=== PATIENT | female | born 1955 | race African-American/Black ===

== ENCOUNTER → 2017-02-25 | Outpatient (CLI) | payer BC ==
[~2017-02-25] MED LIST: AMIT10TA PO; BENT10CA PO; CITICOLINE PO; CLOP75TA2 PO; DULO30CA PO; KLON2TAB PO; LANTINJ4 SC; LISI-542 PO; METO1TAB33 PO; MORP30TASA PO; NEUR100C PO; NITR100C39 PO; OXYB10TA PO; OXYC10TA12 PO; PANT40TA2 PO; PLAV1TAB2 PO; PRAV1TAB39 PO; TRAZ-136 PO
[2017-02-25 10:18] LABS: MEAN CORPUSCULAR HEMOGLOBIN 27.5 pg (27.0-33.0); MEAN CORPUSCULAR HGB CONC 34.2 g/dl (32.0-36.5); MEAN CORPUSCULAR VOLUME 80.5 fl (80.0-96.0); RED CELL DISTRIBUTION WIDTH 14.1 % (11.5-14.5); WHITE BLOOD COUNT 7.8 K/mm3 (4.0-10.0)
[2017-02-25 10:43] LABS: ALBUMIN 3.5 GM/DL (3.2-5.2); ALKALINE PHOSPHATASE 148 U/L (45-117); ALT/SGPT 31 U/L (12-78); ANION GAP 12 MEQ/L (8-16); AST/SGOT 22 U/L (15-37); BILIRUBIN,TOTAL 0.4 MG/DL (0.2-1.0); BLOOD UREA NITROGEN 12 MG/DL (7-18); CALCIUM LEVEL 8.8 MG/DL (8.8-10.2); CARBON DIOXIDE LEVEL 26 MEQ/L (21-32); CHLORIDE LEVEL 106 MEQ/L (98-107); CHOLESTEROL LEVEL 189 MG/DL (<200); FREE T4 1.19 NG/DL (0.76-1.46); GLOMERULAR FILTRATION RATE > 60.0 (>45); GLUCOSE, FASTING 136 MG/DL (80-110); POTASSIUM SERUM 4.4 MEQ/L (3.5-5.1); SODIUM LEVEL 144 MEQ/L (136-145); TOTAL PROTEIN 7.9 GM/DL (6.4-8.2); TRIGLYCERIDES LEVEL 238 MG/DL (<150)
== END ==
LOC: M LAB 08:47
PROVIDERS: ATTEND Physician Assistant
DX: M54.5 Low back pain (principal)

== ENCOUNTER → 2017-12-16 | Outpatient (CLI) | payer BC ==
[2017-12-16 11:18] LABS: VITAMIN B12 LEVEL 1608 PG/ML
[2017-12-16 11:19] LABS: RHEUMATOID FACTOR QUANT < 10.0 IU/ML (<15.0)
[2017-12-16 11:23] LABS: ERYTHROCYTE SEDIMENTATION RATE 50 mm/hr (0-30)
[2017-12-16 11:53] LABS: FOLATE 17.7 NG/ML
[2017-12-21 14:55] LABS: ANCA-ATYPICAL <1:20 titer (Neg:<1:20); ANTI DOUBLE STRAND-DNA AB <1 IU/mL (0-9); ANTI THROMBIN 3 FUNCT ACTIVITY 116 % (75-135); ANTINUCLEAR ANTIBODIES DIRECT Negative (Negative); CARDIOLIPIN IGA ANTIBODY <9 APL U/mL (0-11); CARDIOLIPIN IGG ANTIBODY <9 GPL U/mL (0-14); CARDIOLIPIN IGM ANTIBODY 14 MPL U/mL (0-12); CYTOPLASMIC NEUTROP AB ANCA-C <1:20 titer (Neg:<1:20); PERINUCLEAR AB ANCA-P <1:20 titer (Neg:<1:20); PROTEIN C FUNCTIONAL ACTIVITY 148 % (73-180); PROTEIN S FUNCTIONAL ACTIVITY 85 % (63-140); SJOGREN'S ANTI SS-A <0.2 AI (0.0-0.9); SJOGREN'S ANTI SS-B <0.2 AI (0.0-0.9)
[2017-12-22 10:39] LABS: DRVV SCREEN 45.2 SEC
[2017-12-22 10:45] LABS: PTT LUPUS TYPE ANTICOAG SCREEN 1.1 (0-1.2)
== END ==
LOC: M LAB 09:53
DX: Z86.73 Personal history of transient ischemic attack (TIA), and cerebral infarction without residual deficits (principal)
CPT/HCPCS: 82746

== ENCOUNTER → 2018-04-16 | Outpatient (CLI) | payer BC | LOC: M SMT 14:26 | DX: M25.511 Pain in right shoulder (principal) | CPT/HCPCS: 73030 ==

== ENCOUNTER → 2018-04-16 | Outpatient (REF) | payer BC | LOC: M LAB REF 15:30 | DX: R30.0 Dysuria (principal) ==

== ENCOUNTER → 2019-01-08 | Outpatient (REF) | payer BC ==
[~2019-01-08] MED LIST changes: -DULO30CA PO; +DULO30CA9 PO; -PANT40TA2 PO; +PANT40TA3 PO; -TRAZ-136 PO; +TRAZ-163 PO
== END ==
LOC: M LAB REF 09:25
PROVIDERS: ATTEND Physician Assistant
DX: N39.0 Urinary tract infection, site not specified (principal)

== ENCOUNTER → 2019-03-23 | Outpatient (CLI) | payer BC ==
[~2019-03-23] MED LIST changes: -OXYB10TA PO; +OXYB10TA2 PO
[2019-03-23 18:51] LABS: BASO # 0.1 10^3/uL (0.0-0.2); BASO % 0.5 % (0.0-1.0); EOS # 0.2 10^3/uL (0.0-0.5); EOS % 2.2 % (0.0-3.0); HEMATOCRIT 44.9 % (36.0-47.0); HEMOGLOBIN 14.2 g/dl (12.0-15.5); LYMPH # 3.1 10^3/uL (1.5-5.0); LYMPH % 32.6 % (24.0-44.0); MEAN CORPUSCULAR HEMOGLOBIN 26.7 pg (27.0-33.0); MEAN CORPUSCULAR HGB CONC 31.6 g/dl (32.0-36.5); MEAN CORPUSCULAR VOLUME 84.4 fl (80.0-96.0); MONO # 0.4 10^3/uL (0.0-0.8); MONO % 4.7 % (0.0-5.0); NEUTROPHILS # 5.6 10^3/uL (1.5-8.5); NEUTROPHILS % 59.6 % (36.0-66.0); PLATELET COUNT, AUTOMATED 334 10^3/uL (150-450); RED BLOOD COUNT 5.32 10^6/uL (4.00-5.40); WHITE BLOOD COUNT 9.4 10^3/uL (4.0-10.0)
[2019-03-23 18:55] LABS: CHOLESTEROL RISK RATIO 3.274 (<5); FREE T4 0.97 NG/DL (0.76-1.46); THYROID STIMULATING HORMONE 1.14 uIU/ML (0.358-3.740)
[2019-03-23 19:20] LABS: MALB URINE SIEMENS 7.5 MG/L; MAU/CREAT RATIO 6.5 MCG/MG (0.0-30.0)
== END ==
LOC: M SMT 13:41
PROVIDERS: ATTEND Physician Assistant
DX: Z13.29 Encounter for screening for other suspected endocrine disorder (principal); E78.2 Mixed hyperlipidemia

== ENCOUNTER → 2020-01-06 | Outpatient (REF) | payer BC ==
[~2020-01-06] MED LIST changes: +BENZ-18; +FLUT1BLS3 INH; +HUMA100I3 SC; +INSU100V2; +LEVA0.6322; +LEVA0.636 INH; +LOSA25TA14; +LOSA25TA14 PO; +METO1TAB7 PO; -OXYB10TA2 PO; +OXYB10TA23 PO; +PANT40TA29 PO; -PANT40TA3 PO; +ROSU10TA6; +ROSU10TA6 PO; +TESS100C PO; -TRAZ-163 PO; +TRAZ-257 PO; +XARE20TA PO; +ZOLP12.518; +ZOLP12.518 PO
[2020-01-06 18:54] LABS: APPEARANCE, URINE CLEAR (CLEAR); BACTERIA, URINE AUTO 1+ (NEGATIVE); BILIRUBIN, URINE AUTO NEGATIVE (NEGATIVE); BLOOD, URINE BLOOD NEGATIVE (NEGATIVE); COLOR, URINE YELLOW (YELLOW); GLUCOSE, URINE (UA) AUTO NEGATIVE (NEGATIVE); KETONE, URINE AUTO NEGATIVE (NEGATIVE); LEUKOCYTE ESTERASE, URINE AUTO NEGATIVE (NEGATIVE); NITRITE, URINE AUTO NEGATIVE (NEGATIVE); PROTEIN, URINE AUTO NEGATIVE (NEGATIVE); RBC, URINE AUTO 0 /HPF (0-3); SPECIFIC GRAVITY URINE AUTO 1.012 (1.002-1.035); SQUAMOUS EPITHELIAL CELL UR AU 1 /HPF (0-6); UROBILINOGEN, URINE AUTO 0.2 mg/dL (0.0-2.0); WBC, URINE AUTO 1 /HPF (0-3)
== END ==
LOC: M SMT 16:59
PROVIDERS: ATTEND Nurse Practitioner Family
DX: R30.0 Dysuria (principal)

== ENCOUNTER 2020-04-17 22:52 | Inpatient (IN) | payer BC ==
[~2020-04-17] VITALS: Ht 167.6 cm; Wt 84.0 kg
[~2020-04-17 22:52] MED LIST changes: -BENZ-18; -FLUT1BLS3 INH; -HUMA100I3 SC; -INSU100V2; -LEVA0.6322; -LEVA0.636 INH; -LOSA25TA14; -LOSA25TA14 PO; -METO1TAB7 PO; -ROSU10TA6; -ROSU10TA6 PO; -TESS100C PO; -XARE20TA PO; -ZOLP12.518; -ZOLP12.518 PO
--- NOTE | 2020-04-17 23:10 | REPVR ---
PROCEDURE INFORMATION: Exam: CT Head Without Contrast Exam date and time: 04/17/2020 10:58 PM Age: 64 years old Clinical indication: Weakness, facial; Patient HX: Left facial weak; Additional info: Stroke TECHNIQUE: Imaging protocol: Computed tomography of the head without contrast. Radiation optimization: All CT scans at this facility use at least one of these dose optimization techniques: automated exposure control; mA and/or kV adjustment per patient size (includes targeted exams where dose is matched to clinical indication); or iterative reconstruction. COMPARISON: No relevant prior studies available. FINDINGS: Brain: No intracranial hemorrhage or extra-axial fluid collection. No evidence of mass effect or midline shift. Lyons-white matter differentiation is intact. Cerebral ventricles: No ventriculomegaly. Bones/joints: No acute osseus lesion or fracture. Paranasal sinuses: Visualized sinuses are unremarkable. No fluid levels. Mastoid air cells: Unremarkable. Soft tissues: Unremarkable. IMPRESSION: No acute intracranial pathology. Electronically signed by: Juan Pablo Beauchamp On 04/17/2020 23:10:36 PM
[2020-04-17 23:33] LABS: BASO # 0.1 10^3/uL (0.0-0.2); BASO % 0.4 % (0.0-1.0); EOS # 0.2 10^3/uL (0.0-0.5); EOS % 1.3 % (0.0-3.0); HEMATOCRIT 43.4 % (36.0-47.0); HEMOGLOBIN 13.9 g/dl (12.0-15.5); LYMPH # 3.5 10^3/uL (1.5-5.0); LYMPH % 24.9 % (24.0-44.0); MEAN CORPUSCULAR VOLUME 81.3 fl (80.0-96.0); MONO % 7.2 % (0.0-5.0); NEUTROPHILS # 9.2 10^3/uL (1.5-8.5); NEUTROPHILS % 65.6 % (36.0-66.0); PLATELET COUNT, AUTOMATED 327 10^3/uL (150-450); RED BLOOD COUNT 5.34 10^6/uL (4.00-5.40); WHITE BLOOD COUNT 14.1 10^3/uL (4.0-10.0)
[2020-04-17] MEDS ORDERED: BENZ-18 (23:35)
[2020-04-17] MEDS ORDERED: ZOLP12.518 (23:35)
[2020-04-17] MEDS ORDERED: XARE20TA PO (23:35)
[2020-04-17] MEDS ORDERED: INSU100V2 (23:35)
[2020-04-17] MEDS ORDERED: ROSU10TA6 (23:35)
[2020-04-17] MEDS ORDERED: LEVA0.6322 (23:35)
[2020-04-17] MEDS ORDERED: LOSA25TA14 (23:35)
--- NOTE | 2020-04-17 23:38 | REPVR ---
PROCEDURE INFORMATION: Exam: XR Chest, 1 View Exam date and time: 04/17/2020 11:28 PM Age: 64 years old Clinical indication: Chest pain; Additional info: CVA TECHNIQUE: Imaging protocol: XR of the chest Views: 1 view. COMPARISON: No relevant prior studies available. FINDINGS: Tubes, catheters and devices: Electronic device projects over the mid left hemithorax. Lungs: No focal areas of consolidation. Pleural space: No pleural effusion or pneumothorax. Heart/Mediastinum: Cardiac and mediastinal silhouettes are unremarkable. Bones/joints: No acute osseus lesion or fracture. IMPRESSION: No acute cardiopulmonary findings. Electronically signed by: Juan Pablo Beauchamp On 04/17/2020 23:38:28 PM
[2020-04-17 23:45] VITALS: BP 157/78
[2020-04-17 23:45] LABS: INR 1.13; PARTIAL THROMBOPLASTIN TIME 31.6 SECONDS (24.2-38.5); PROTHROMBIN TIME 14.8 SECONDS (12.5-14.3)
--- NOTE | 2020-04-17 23:52 | IPNPDOC ---
Text Note Date of Service The patient was seen on 04/17/20. NOTE Time of service 1157 is a 64 yr old w a hx or 3 CVAs on Plavix, DM1, HTN, Asthma, GERD and depression who developed facial droop and expressive aphasia at about 6PM; she was out of the tPA window. She has also been having relapsing and remitting substernal chest pain that occurs w/o warning and dyspnea. 1 Acute CVA She is still symptomatic and her SBP is in the 190s Plan: telemetry / place stroke order set w MRI brain /MRA head and neck, lipids, A1C, Echo, PT/OT/SPL / c/w Plavix / increase rosuvastatin from 10 to 20mg daily / permissive HTN w target BP <220/120 / target serum glucose between 140 to 180 / Neuro consult in AM 2 Chest pain Suspect she has CAD bc of hx of 3 CVAs and DM Plan: telemetry / f/u BNP, serial trops & serial EKGs / c/w statin, Plavix, BB / her PCP may consider referral to Cardio for stress test on an out pt basis 3. SIRS She is tachycardic w leukocytosis May be reactive vs 2/2 infection Plan: telemetry / f/u, Trops & TSH / f/u respiratory panel bc she is c/o dyspnea / she is on levalbuterol rather than albuterol rest per 's H&P VS,Serjio, I+O VS, Serjio, I+O Laboratory Tests 04/17/20 23:17 Vital Signs Date Time Temp Pulse Resp B/P (MAP) Pulse Ox O2 Delivery O2 Flow Rate FiO2 04/17/20 23:45 98.6 106 18 157/78 95 Room Air DANITZA DE LA CRUZ MD Apr 17, 2020 23:52
[2020-04-17 23:59] LABS: CK-MB VALUE MASS < 1.0 NG/ML (<3.6); CPK CREATINE PHOSPHOKINASE 108 U/L (26-192); MB/CK RELATIVE INDEX 0.93 (< OR =4); TROPONIN I < 0.02 NG/ML (< 0.10)
[2020-04-18] MEDS ORDERED: ZOLP12.518 PO (00:06)
[2020-04-18] MEDS ORDERED: XARE20TA PO (00:06)
[2020-04-18] MEDS ORDERED: HUMA100I3 SC (00:06)
[2020-04-18] MEDS ORDERED: ROSU10TA6 PO (00:06)
[2020-04-18] MEDS ORDERED: PANT40TA29 PO (00:06)
[2020-04-18] MEDS ORDERED: TESS100C PO (00:06)
[2020-04-18] MEDS ORDERED: LEVA0.636 INH (00:06)
[2020-04-18] MEDS ORDERED: METO1TAB7 PO (00:06)
[2020-04-18] MEDS ORDERED: LOSA25TA14 PO (00:06)
[2020-04-18] MEDS ORDERED: FLUT1BLS3 INH (00:06)
[2020-04-18] MEDS ORDERED: NS 1,000 ML IV SCH (00:37)
[2020-04-18] MEDS ORDERED: GLUCOSE 4GM CHEW TABLET PO PRN (00:45)
[2020-04-18] MEDS ORDERED: DEXTROSE 50% 50 ML SYRINGE IV PRN (00:45)
[2020-04-18] MEDS ORDERED: GLUCAGON INJ 1MG VIAL SC PRN (00:45)
[2020-04-18] MEDS ORDERED: LEVALBUTEROL 1.25 MG/0.5 ML CONCENTRATE NEB INH PRN (00:45)
[2020-04-18 02:01] VITALS: BP 153/72
--- NOTE | 2020-04-18 03:01 | HPEPDOC ---
[facility] Medical History & Physical Date of Admission Apr 17, 2020 Date of Service: Apr 17, 2020 Attending Physician: DANTIZA DE LA CRUZ MD History and Physical CHIEF COMPLAINT: Right sided facial droop and right arm weakness HISTORY OF PRESENT ILLNESS: Patient is a 64 year old female who presented to the [facility] ER with complaint of worsening right sided facial droop, right arm weakness, and difficulty swallowing. Patient had stated that she noticed the symptoms around 1830. She said she felt like her face was drooping and she was not able to speak as clear. The patients had told her that she was slurring her speech. Additionally the patient stated that she developed some weakness in her right arm. She denied weakness in her legs however stated that she felt it was more difficult to walk. The patient also stated that she had developed some difficulty swallowing and stated that it was difficult for her to drink water On presentation to the ER the patient was vitally stable although hypertensive. She had a mild leukocytosis but otherwise no other laboratory abnormalities. At time of presentation the patient was outside of the tPa window and therefore no thrombolytics were administered. A CT of the head was negative for any intracranial pathology. Neurology was consulted in the ER with plans to see the patient tomorrow AM. Hospitalist service was consulted and the patient was admitted for further evaluation and management PAST MEDICAL HISTORY: 1. IDDM 2. Atherosclerotic disease with history of CVA x3 3. Atrial Fibrillation on Xarelto 4. HTN 5. Hyperlipidemia PAST SURGICAL HISTORY: 1. Total Hysterectomy 2. Appendectomy 3. Cholecystectomy 4. Bowel adhesion removal? 5. Bladder Suspension SOCIAL HISTORY: Patient lives at home with her . She spends half of her t genie in [place] and the rest in [place]. Most of her medical care is handeled by practiconers in [place]. She denies any smoking history. She denies any other IV or illicit drug use. She admits to social drinking and states "I like my tequila". She is independent of her ADLs and ambulates without a walker or cane at baseline FAMILY HISTORY: Patient has a family history positive for ASCVD with a stroke as the cause of in her mother at the age of 87 and in her father. She has one sister who has hypertension but is otherwise alive and well ALLERGIES: Please see below. REVIEW OF SYSTEMS: CONSTITUTIONAL: Denies fevers, chills, unintentional weight loss. Denies night sweats HEENT: Denies changes in vision. Admits to difficulty swallowing and moving her tongue. Denies pain on swallowing CARDIOVASCULAR: Admits to some chest pain that has been on and off for some time. States she has chest pain at rest but it does not worsen with exertion. Denies palpitations or feelings of the heart racing RESPIRATORY: Denies shortness of breath. Denies cough. Denies wheez GASTROINTESTINAL: Denies abdominal pain. Denies diarrhea or constipation. Denies nausea, vomiting. GENITOURINARY: Denies dysuria. Denies increased frequency or urgency SKIN: Denies rashes or lesions MUSCULOSKELETAL: Admits to right arm pain. NEUROLOGICAL: Admits to weakness in right arm. Admits to facial droop and change in speech. Admits to difficulty swallowing. Denies changes in vision PSYCHIATRIC: Admits to history of anxiety and depression ENDOCRINE: Denies heat intolerance or cold intolerance. Admits to diabetes HEMATOLOGIC/LYMPHATIC: Denies easy bruising or bleeding. Denies DVT or PE HOME MEDICATIONS: Please see below. PHYSICAL EXAMINATION: VITAL SIGNS: Temperature 98.2, pulse 97, respiratory rate 18, blood pressure 168/88, pulse oximetry 94% on room air. GENERAL APPEARANCE: Patient is awake, alert and oriented. She does not appear to be in any acute distress. Lying comfortably in bed. HEENT: Atraumatic, normocephalic. Eyes are nonicteric. Trachea is midline. EOMI. Mucous membranes pink and moist CARDIOVASCULAR: Normal S1, S2. Tachycardic rate. Irregularly irregular rhythm. No clicks, rubs, or murmurs LUNGS: Clear vesicular breath sounds bilaterally. Good respiratory effort. No wheezes, rhonchi, or rales ABDOMEN: Soft, nondistended. Nontender. Normoactive bowel sounds throughout EXTREMITIES: No edema. 2+ posterior tibial and radial pulses bilaterally NEUROLOGICAL: Right sided facial droop. 5/5 muscle strength testing. Subjective weakness of right upper extremity EOMI intact. Cerebellar testing normal PSYCHIATRIC: Mood and affect appear appropriate LABORATORY DATA: See below. IMAGING: PROCEDURE INFORMATION: Exam: CT Head Without Contrast Exam date and time: 04/17/2020 10:58 PM Age: 64 years old Clinical indication: Weakness, facial; Patient HX: Left facial weak; Additional info: Stroke TECHNIQUE: Imaging protocol: Computed tomography of the head without contrast. Radiation optimization: All CT scans at this facility use at least one of these dose optimization techniques: automated exposure control; mA and/or kV adjustment per patient size (includes targeted exams where dose is matched to clinical indication); or iterative reconstruction. COMPARISON: No relevant prior studies available. FINDINGS: Brain: No intracranial hemorrhage or extra-axial fluid collection. No evidence of mass effect or midline shift. Lyons-white matter differentiation is intact. Cerebral ventricles: No ventriculomegaly. Bones/joints: No acute osseus lesion or fracture. Paranasal sinuses: Visualized sinuses are unremarkable. No fluid levels. Mastoid air cells: Unremarkable. Soft tissues: Unremarkable. IMPRESSION: No acute intracranial pathology. Electronically signed by: Juan Pablo Beauchamp On 04/17/2020 23:10:36 PM PROCEDURE INFORMATION: Exam: XR Chest, 1 View Exam date and time: 04/17/2020 11:28 PM Age: 64 years old Clinical indication: Chest pain; Additional info: CVA TECHNIQUE: Imaging protocol: XR of the chest Views: 1 view. COMPARISON: No relevant prior studies available. FINDINGS: Tubes, catheters and devices: Electronic device projects over the mid left hemithorax. Lungs: No focal areas of consolidation. Pleural space: No pleural effusion or pneumothorax. Heart/Mediastinum: Cardiac and mediastinal silhouettes are unremarkable. Bones/joints: No acute osseus lesion or fracture. IMPRESSION: No acute cardiopulmonary findings. Electronically signed by: Juan Pablo Beauchamp On 04/17/2020 23:38:28 PM MICROBIOLOGY: Please see below. ASSESSMENT: Patient is a 64 year old female with a past medical history significant for multiple CVAs in the past with residual right sided facial droop who presented to the [facility] ER with complaint of worsening right sided facial droop and right arm weakness sinec 1830 on 04/17/2020 . PLAN: 1. CVA vs TIA -Patient has a history of CVA x3 in the past. She states that she had previ ously received tPa. She was left with some right sided facial droop. She stated that it was not very noticeable. Recently she has developed worsening right sided facial droop and subjective right arm weakness. Patient was outside of tPa window on presentation to the ER -Patient already on full anticoagulation with Xarelto for chronic atrial fibrillation -Neurology has been consulted and will see patient in AM -MRI brain, MRA brain, ultrasound carotids, echocardiogram w/ bubble study ordered -Neurological checks q2h - HgbA1C 8.0 -Telemetry -Patient on moderate intensity statin dosing outpatient. Will increase to high intensity given diabetes history and multiple CVAs -Patient has reported difficulty swallowing. NPO. Bed side swallow Eval. -Permissive HTN for 24-48 hours. Not a tPa candidate. goal BP < 220/<110 -Lipid panel pending 2. Chest pain -Patient complained of chest pain. She states this is a chronic thing although unable to tell if her chest pain was worse today. -Cardiac Marker panel negative. EKG negative for any acute changes. -Will monitor. Consider referral for outpatient cardiac stress testing 3. Insulin Dependent Diabetes Mellitus -Patient has insulin pump. May continue to use -Hypoglycemic protocol 4. Chronic Atrial Fibrillation -Patient has chronic atrial fibrillation. She is anticoagulated with xarelto. Continue Xarelto -Patient is currently rate controlled. Holding Metoprolol 50 mg for now 5. HTN -In setting of possible acute CVA will allow permissive HTN. BP <220 / < 110 -Hold losartan and metoprolol 6. GERD -Continue home protonix 7. Asthma -Currently stable -PRN Xopenex HFA 8. DVT Prophylaxis -Patient on xarelto Vital Signs Vital Signs Date Time Temp Pulse Resp B/P (MAP) Pulse Ox O2 Delivery O2 Flow Rate FiO2 04/18/20 01:46 97 93 04/18/20 01:31 98.2 18 118/78 (91) Room Air Laboratory Data Labs 24H Laboratory Tests 2 04/17/20 23:09: Bedside Glucose (Misc Panel) 177H 04/17/20 23:16: POC Prothrombin Time (Misc) 15.5H, POC INR (Misc) 1.3 04/17/20 23:17: Immature Granulocyte % (Auto) 0.6, Neutrophils (%) (Auto) 65.6, Lymphocytes (%) (Auto) 24.9, Monocytes (%) (Auto) 7.2H, Eosinophils (%) (Auto) 1.3, Basophils (%) (Auto) 0.4, Neutrophils # (Auto) 9.2H, Lymphocytes # (Auto) 3.5, Monocytes # (Auto) 1.0H, Eosinophils # (Auto) 0.2, Basophils # (Auto) 0.1, Nucleated Red Blood Cells % (auto) 0.0, Prothrombin Time 14.8H, Prothromb Time International Ratio 1.13, Activated Partial Thromboplast Time 31.6, Total Creatine Kinase 108, Creatine Kinase MB < 1.0, Creatine Kinase MB Relative Index 0.93, Troponin I < 0.02 04/17/20 23:21: POC Glucose (Misc Panel) 179H, POC Sodium (Misc Panel) 137, POC Potassium (Misc Panel) 5.1, POC Chloride (Misc Panel) 105, POC Total CO2 (Misc Panel) 25.0, POC Blood Urea Nitrogen (Misc Panel 14, POC Ionized Calcium (Misc Panel) 4.2L, POC Creatinine (Misc Panel) 0.8, POC Hematocrit (Misc Panel) 47.0 04/17/20 23:22: POC Troponin I (Misc) 0.00 04/18/20 00:58: Estimated Mean Plasma Glucose 183H, Hemoglobin A1c 8.0 CBC/BMP Laboratory Tests 04/17/20 23:17 Microbiology Microbiology 04/18/20 Respiratory Virus Panel (PCR) ([facility]) - Final, Complete Home Medications Scheduled Benzonatate (Tessalon Perle) 100 Mg Capsule, 200 MG PO TID Fluticasone Propion/Salmeterol (Wixela 500-50 Inhub) 1 Each Blst.w.dev, 1 PUFF INH BID Insulin Lispro (Humalog) 100 Unit/1 Ml Cartridge, 1 DOSE SC ASDIRECTED VIA INSULIN PUMP Losartan Potassium (Losartan Potassium) 25 Mg Tablet, 25 MG PO DAILY Metoprolol Succinate (Metoprolol Succinate) 50 Mg Tab.er.24h, 50 MG PO DAILY Pantoprazole Sodium (Pantoprazole Sodium) 40 Mg Tablet.dr, 40 MG PO DAILY Rivaroxaban (Xarelto) 20 Mg Tablet, 20 MG PO DAILY Rosuvastatin Calcium (Rosuvastatin Calcium) 10 Mg Tablet, 10 MG PO DAILY Scheduled PRN Levalbuterol HCl (Levalbuterol HCl) 0.63 Mg/3 Ml Vial.neb, 0.63 MG INH Q6H PRN for SHORTNESS OF BREATH Zolpidem Tartrate (Zolpidem Tartrate ER) 12.5 Mg Tab.mphase, 12.5 MG PO QHS PRN for INSOMNIA Allergies Coded Allergies: nalbuphine (Unverified Adverse Reaction, Unknown, itch, 04/17/20) A-FIB/CHADSVASC A-FIB History Current/History of A-Fib/PAF?: Yes Current PO Anticoag Therapy: Yes GME ATTESTATION GME ATTESTATION My faculty preceptor for this patient encounter was physically present during the encounter and was fully available. All aspects of the patient interview, examination, medical decision making process, and medical care plan development were reviewed and approved by the faculty preceptor. The faculty preceptor is aware and concurs with the plan as stated in the body of this note and will attest to such by his/her cosignature. ATTENDING NOTE Pls see my addendum dated 04/17/20 for additional details. I reviewed the note and agree with the findings as documented by additional diagnosis #Obesity with BMI 30.8 complicates care FERNANDEZ HOUSER DO Apr 18, 2020 03:01 DANITZA DE LA CRUZ MD Apr 18, 2020 06:12
[2020-04-18 04:00] VITALS: BP 119/57
[2020-04-18 06:04] LABS: HEMATOCRIT 41.4 % (36.0-47.0); HEMOGLOBIN 13.2 g/dl (12.0-15.5); MEAN CORPUSCULAR HGB CONC 31.9 g/dl (32.0-36.5); MEAN CORPUSCULAR VOLUME 81.5 fl (80.0-96.0); PLATELET COUNT, AUTOMATED 295 10^3/uL (150-450); RED BLOOD COUNT 5.08 10^6/uL (4.00-5.40); WHITE BLOOD COUNT 10.4 10^3/uL (4.0-10.0)
[2020-04-18 06:49] LABS: BLOOD UREA NITROGEN 10 MG/DL (7-18); CALCIUM LEVEL 8.6 MG/DL (8.8-10.2); CARBON DIOXIDE LEVEL 25 MEQ/L (21-32); CHLORIDE LEVEL 105 MEQ/L (98-107); CHOLESTEROL LEVEL 194 MG/DL (<200); CHOLESTEROL RISK RATIO 3.803 (<5); CK-MB VALUE MASS < 1.0 NG/ML (<3.6); CPK CREATINE PHOSPHOKINASE 78 U/L (26-192); GLOMERULAR FILTRATION RATE > 60.0 (>45); GLUCOSE, FASTING 244 MG/DL (70-100); HDL CHOLESTEROL 51 MG/DL (>40); LDL CHOLESTEROL 126 MG/DL (<100); MB/CK RELATIVE INDEX 1.28 (< OR =4); NON-HDL-C 143 MG/DL; POTASSIUM SERUM 3.7 MEQ/L (3.5-5.1); SODIUM LEVEL 137 MEQ/L (136-145); TRIGLYCERIDES LEVEL 85 MG/DL (<150); TROPONIN I < 0.02 NG/ML (< 0.10)
[2020-04-18 08:00] VITALS: BP 128/60
[2020-04-18] MEDS ORDERED: RIVAROXABAN 20 MG TAB (XARELTO) PO SCH (09:00)
[2020-04-18] MEDS: ROSUVASTATIN 10 MG TAB (CRESTOR) PO SCH (09:33)
[2020-04-18] MEDS: PANTOPRAZOLE 40MG TAB (PROTONIX) PO SCH (09:33)
[2020-04-18] MEDS ORDERED: ISOVUE-370 76% 100ML VIAL As Ordered ONE (11:35)
[2020-04-18 12:29] VITALS: BP 132/82
--- NOTE | 2020-04-18 12:57 | REP ---
INDICATION: POSSIBLE CVA. COMPARISON: Comparison CT study of the brain April 17, 2020.. TECHNIQUE: CT contrast dose: 100 ml of intravenous Isovue 370. CT technique: Helical scanning is acquired. 2 mm axial images are reformatted. Maximal intensity projection and multiplanar re-formation images are generated along with 3-D surface rendered color imaging which is viewed rotational. FINDINGS: Incidental note is made of a fairly prominent torus palatine. The craniofacial bony structures are otherwise unremarkable. No intraorbital abnormality is seen. No abnormal intracranial contrast enhancement is appreciated. The distal vertebral arteries are unremarkable. Basilar artery is widely patent. Posterior cerebral and superior cerebellar vessels are intact. The left posterior cerebral takes a persistent origin from the anterior circulation which is a normal variant. The distal internal carotid arteries are unremarkable. Anterior and middle cerebral arteries appear intact. There is no evidence of arteriovenous malformation, vessel cut off, or hurtado aneurysm. The dural sinuses are patent. No venous abnormality is appreciated. IMPRESSION: Unremarkable CT angiography of the brain with IV contrast. <Electronically signed by Nura Rivera > 04/18/20 [id number]
--- NOTE | 2020-04-18 13:11 | REP ---
INDICATION: r/o CVA. COMPARISON: No comparison sonography.. TECHNIQUE: Duplex carotid sonography. FINDINGS: Antegrade flow is observed in both vertebral arteries. Right carotid: The right common carotid artery is unremarkable on two-dimensional scanning. Color flow and spectral Doppler interrogation unremarkable in the proximal ICA. No significant plaquing is seen on two-dimensional scanning. Velocity chart right carotid: Right CCA PSV 96 cm/S Right ICA PSV 50 cm/S Right ICA EDV 17 cm/S Right ECA PSV 79 cm/S Right ICA/CCA ratio normal 0.52 Left carotid: The left common carotid artery is unremarkable on two-dimensional scanning. There is no significant plaquing in the bulb, proximal ICA, or proximal ECA on the left side. Velocity chart left carotid: Left CCA PSV 73 cm/S Left ICA PSV 45 cm/S Left ICA EDV 16 cm/S Left ECA PSV 39 cm/S Left ICA/CCA ratio normal 0.61 IMPRESSION: Unremarkable duplex carotid sonography. No evidence of ICA stenosis on either side. <Electronically signed by Nura Rivera > 04/18/20 [id number]
[2020-04-18 13:17] LABS: CK-MB VALUE MASS < 1.0 NG/ML (<3.6); CPK CREATINE PHOSPHOKINASE 93 U/L (26-192); MB/CK RELATIVE INDEX 1.08 (< OR =4); TROPONIN I < 0.02 NG/ML (< 0.10)
--- NOTE | 2020-04-18 15:53 | REP ---
CONTRAST: 100 mL of intravenous Isovue 370. INDICATION: Possible CVA. COMPARISON: No comparison study. TECHNIQUE: Helical scanning is acquired in 2 mm axial images are re-formatted. Coronal and sagittal MPR and coronal and sagittal MIP images are generated. Curved array MPR images are generated and 3D surface rendered images are generated and viewed rotationally. FINDINGS: Digital preliminary newborn hearing screener views are unremarkable. The great vessel origins are intact. Common carotid arteries are widely patent. Carotid bifurcations are clear bilaterally. No significant atherosclerotic plaquing is seen. The internal carotid arteries are patent and symmetric. The vertebral arteries are widely patent and codominant. Incidental findings include a right upper lobe calcified pulmonary nodule and granulomatous lymph node calcifications in the right paratracheal region of the mediastinum. There are minimal degenerative disc changes in the cervical spine. IMPRESSION: Unremarkable CT angiography of the carotids and neck with IV contrast. <Electronically signed by Nura Rivera > 04/18/20 [id number]
[2020-04-18 16:00] VITALS: BP 144/88
--- NOTE | 2020-04-18 17:34 | IPNPDOC ---
Text Note Date of Service The patient was seen on 04/18/20. NOTE CC: Right-sided facial droop and right arm weakness Subjective: Judith Rios is a 64 yr old female who presents w/ right-sided facial droop and RUE weakness. Her was also involved during this visit via telephone. Today, patient continues to complain of weakness in her arm and face as well as chest pain. For the arm and face, she states that she has had pain in her face that feels like pins and needles throughout the night except for her left chin, where she cannot feel anything. She can move the arm better today but there is still numbness and tingling in her arm. Nothing makes her pain better or worst and she rates the pain in her face a 9/10. In regards to her chest pain, she describes it as tight pain but the pain does not radiate anywhere and it localized to her chest. She states that it is worse with exertion. Patient and confirm that patient has a heart monitor loop recorder. ROS: General: Positive for weakness, denies fever, chills HEENT: Positive for headache, denies vision changes, lightheadedness Cardiovascular: Positive for chest pain, denies palpitations, leg swelling Respiratory: Positive for shortness of breath, coughing, wheezing GI: Denies diarrhea, constipation, abdominal pain, vomiting, nausea : Denies hematuria Neuro: Positive for numbness and tingling Objective: General: Patient in no acute distress, alert and oriented x3 Neuro: Cranial nerve V: unable to feel right cheek, left cheek, and left cheek sensation, Cranial Nerve VII: right sided facial droop when smiling, absent pinprick sensation in right arm and right hand, absent light touch sensation to right leg and right foot, pinprick and light touch sensation present in left arm, left hand, left leg, and left foot Cranial nerves II, III, IV, , XI, X, XI, XII intact, Cardiovascular: RRR, no murmurs or gallops, normal S1 and S2 Respiratory: Inspiratory wheezing appreciated in all lung magallon GI: RUQ tenderness w/ (+) Maya's sign, normal bowel sounds x4, nondistended, no hepatomegaly Extremities: +1/4 pedal pulses bilaterally, 5/5 strength testing in upper and lower extremities bilaterally, no pitting edema Labs: See below Imaging: -CT head w/o contrast on 04/17/[address] Beauchamp showed no acute intracranial pathology -Chest x-ray on 04/17/[address] Beauchamp showed no acute cardiopulmonary findings -Carotid US on 04/18/[address] Rivera showed unremarkable duplex carotid sonography, no evidence of ICA stenosis on either side -CT Angio of neck w/ contrast on 04/18/[address] Rivera showed unremarkable CT angiography of the carotids and neck w/ IV contrast -CT Angio Head on 04/18/[address] Rivera showed unremarkable CT angiography of the brain w/ IV contrast Assessment: Ms. Judith Rios is a 64 yr old female w/ PMHx of multiple CVAs, IDDM, atherosclerosis, atrial fibrillation on Xarelto, HTN, hyperlipidemia presents w/ right sided facial droop and right arm weakness. Patient was found to have sensation loss in upper and lower extremities as well as weakness in her face and arm that makes concerning for CVA. Plan: 1. CVA -Patient's imaging as stated above came back negative -Patient is unable to have an MRI done due to heart monitor loop recorder, SCOTT was ordered -Telemetry reported no overnight events and normal EKG -Patient is currently on Xarelto and will continue Xarelto -Lipid panel came back showing elevated LDL of 126 -Continue rosuvastatin 40 mg PO daily 2. Chest Pain -Patient has been complaining of chest pain and has history of atherosclerosis, hypertension, afib, and hyperlipidemia -Patient's telemetry and EKG did not show any abnormal changes, troponins came back negative 3. Insulin Dependent Diabetes Mellitus -Patient may use own insulin pump 4. Chronic atrial fibrillation -Patient is on Xarelto, will continue Xarelto 5. Hypertension -Patient's currently has a BP 144/88 -Permissive hypertension allowed for 24 hours, will monitor before proceeding with any treatment 6. Asthma: -Patient has inspiratory wheezing but is stable 7. DVT prophylaxis -Continue Xarelto Dispo: Patient needs SCOTT done due to inability to have MRI done VS,Fishbone, I+O VS, Fishbone, I+O Laboratory Tests 04/17/20 23:17 04/18/20 05:54 Vital Signs Date Time Temp Pulse Resp B/P (MAP) Pulse Ox O2 Delivery O2 Flow Rate FiO2 04/18/20 16:00 97.3 88 18 144/88 (106) 95 Room Air GME ATTESTATION GME ATTESTATION My faculty preceptor for this patient encounter was physically present during the encounter and was fully available. All aspects of the patient interview, examination, medical decision making process, and medical care plan development were reviewed and approved by the faculty preceptor. The faculty preceptor is aware and concurs with the plan as stated in the body of this note and will attest to such by his/her cosignature. ATTENDING NOTE Patient was seen and examined by me personally with the residents/ students. I agree with the above assessment and plan GME ATTESTATION GME ATTESTATION My faculty preceptor for this patient encounter was physically present during the encounter and was fully available. All aspects of the patient interview, examination, medical decision making process, and medical care plan development were reviewed and approved by the faculty preceptor. The faculty preceptor is aware and concurs with the plan as stated in the body of this note and will attest to such by his/her cosignature. QUENTIN ROQUE OMS-IV Apr 18, 2020 17:34 LAMONT MENDOZA MD Apr 24, 2020 12:34
[2020-04-18 20:00] VITALS: BP 139/70
[2020-04-18] MEDS ORDERED: guaiFENesin SYRUP 200 MG/10 ML UDC PO ONE (21:15)
[2020-04-18] MEDS ORDERED: zolPIDEM TARTRATE 5 MG TAB PO ONE (21:15)
[2020-04-19] VITALS: BP 146/78
[2020-04-19] MEDS: D5W/0.45% SODIUM CHLORIDE 1,000 ML IV SCH ×2 (00:04→15:41)
[2020-04-19 04:00] VITALS: BP 142/86
[2020-04-19 06:00] LABS: BLOOD UREA NITROGEN 8 MG/DL (7-18); CALCIUM LEVEL 8.4 MG/DL (8.8-10.2); CARBON DIOXIDE LEVEL 27 MEQ/L (21-32); CHLORIDE LEVEL 108 MEQ/L (98-107); CREATININE FOR GFR 0.82 MG/DL (0.55-1.30); GLOMERULAR FILTRATION RATE > 60.0 (>45); GLUCOSE, FASTING 146 MG/DL (70-100); POTASSIUM SERUM 3.9 MEQ/L (3.5-5.1); SODIUM LEVEL 140 MEQ/L (136-145)
--- NOTE | 2020-04-19 07:44 | CR ---
DATE OF CONSULTATION: 04/18/2020 REQUESTING PHYSICIAN: Dr. Sergio Cha REASON FOR CONSULTATION: Right sided arm weakness, left sided facial symptoms and trouble speaking. HISTORY OF PRESENT ILLNESS: Judith Rios is a 64-year-old woman who states that she had strokes 3 times in the past and received TPA apparently on all occasions, once in [place], [facility], [place] and another [facility] in [place] within the last 5 years. She was on Plavix for a few years and in September 2019 her business analysis consultant put a loop recorder which detected a heart abnormality and she was put on Xarelto. The patient states that for 2 weeks she was on Aspirin and Xarelto, in the beginning, but she had easy bleeding and bruising so Aspirin was discontinued by her business analysis consultant. The patient also stated that in her previous strokes her symptoms lasted for 30-45 minutes. She states that she had trouble with speech, right arm weakness and right sided facial weakness in most of these strokes. She had residual right sided facial weakness. Yesterday she did not think that she was having another stroke when she woke up around 6:30 after a nap. She felt her right arm was numb and weak. She felt trouble swallowing. As she tried talking, her noted that her speech was not right, and she was brought to [facility]. The patient states very clearly that left side of face felt numb and tingling and her face was being pulled to left side when she was trying to talk or smile. Left sided facial numbness, tingling started at the onset of her symptoms. She states that she has been taking Xarelto regularly. She was not a candidate for TPA due to her use of Xarelto yesterday. Her symptoms lasted for 30-45 minutes again. Yesterday she had a severe headache with her symptoms. She usually does not have headaches. She denies any neck pain, back pain, dysphagia, dysarthrias, diplopia, urinary incontinence, falls or loss of consciousness currently. PAST MEDICAL HISTORY: The patient's past medical history is significant for: 1. Insulin dependent diabetes mellitus. 2. History of strokes three times in past and patient stated that she received TPA on all occasions in different [place] of the [place], as described above. 3. Atrial fibrillation, on Xarelto. 4. Hypertension. 5. Dyslipidemia. PAST SURGICAL HISTORY: The patient's past surgical history is significant for: 1. Loop recorder placement. 2. Hysterectomy. 3. Appendectomy. 4. Cholecystectomy. 5. Bladder suspension. SOCIAL HISTORY: She denies smoking, alcohol or illicit drugs. She is from [place]. FAMILY HISTORY: There is family history of stroke. REVIEW OF SYSTEMS: All systems were reviewed and found to be noncontributory except as mentioned in the history of present illness. HOME MEDICATIONS: * Xarelto 20 mg p.o. daily. * Losartan 25 mg p.o. daily. * Metoprolol Extended Release 50 mg p.o. daily. * Protonix 40 mg p.o. daily. * Crestor 10 mg p.o. daily. * Insulin pump. * Wixela one puff inhalation twice daily. * Ambien 12.5 mg p.o. q. h.s. ALLERGIES: Nalbuphine. PHYSICAL EXAMINATION: VITAL SIGNS: Temperature 96.8, pulse 87, respiratory rate 18, blood pressure 132/82, 94% saturation on room air. HEENT: The extraocular muscles are intact. Tongue and uvula are midline. She has slightly decreased right sided nasolabial fold and I am not sure if it is different than her baseline with a history of previous stroke. HEART: Irregularly irregular. LUNGS: Clear to auscultation. ABDOMEN: Soft, nontender, nondistended. EXTREMITIES: No pedal edema. MUSCULOSKELETAL: No abnormalities. SKIN: No rash. No signs of irritation. NEUROLOGICAL: The patient is awake, alert, oriented to place, person and time. Normal speech, comprehension and interpretation. 5-/5 strength in right arm. Right leg strength is 5/5. Left sided strength is 5/5. Deep tendon reflexes are 1+ in arms and knees and absent at ankles. She has normal cold touch sensation on both sides but decreased in feet. Gait is normal. DIAGNOSTIC STUDIES: CT scan of head did not show acute disease. CTA of head and neck were unremarkable. Arterial ultrasound was unremarkable. LABORATORY DATA: HDL was 51. LDL was 126. ASSESSMENT: 1. Complex migraine versus transient ischemic attack. 2. History of TIA and stroke in past. 3. History of atrial fibrillation and patient is status post loop recorder placement. 4. Insulin dependent diabetes and hypertension and dyslipidemia. PLAN: 1. Continue Xarelto 20 mg p.o. daily and Crestor 10 mg p.o. daily. 2. Cardiology was consulted and recommended SCOTT to rule out cardiac source. 3. Her symptoms of left sided facial numbness, tingling with right arm symptoms are unusual for TIA and CVA. MARILEED
[2020-04-19 07:55] VITALS: BP 144/81
--- NOTE | 2020-04-19 07:56 | ECGEPIP ---
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
[2020-04-19] MEDS: ROSUVASTATIN 10 MG TAB (CRESTOR) PO SCH (08:25)
[2020-04-19] MEDS: PANTOPRAZOLE 40MG TAB (PROTONIX) PO SCH (08:25)
[2020-04-19 11:33] VITALS: BP 148/78
--- NOTE | 2020-04-19 13:16 | IPNPDOC ---
Text Note Date of Service The patient was seen on 04/19/20. NOTE CC: RUE weakness and right sided facial droop Subjective: Judith Rios is a 64 yr old female who presented to the ED with right upper extremity weakness and right sided facial droop. The encounter also included her via telephone and Facetime. Today, patient still feels weakness in those areas but is overall better than before. She still feels small amounts of pain in her left face and still does not have as much sensation on the left chin. Her right arm movement feels much better. Rates the pain 7/10. Patient also complains of headache occurring in the back of her head, shortness of breath that she states has gotten worse at night, and a dry cough. With the s hortness of breath and cough, she states that happens more at night. The nurses have given her Robitussin and that has made things better, but her and her want to consult radio installer. ROS: General: Positive for weakness, denies fever, chills, night sweats HEENT: Positive for headaches, denies lightheadedness, vision changes Cardiovascular: Denies chest pain, palpitations, leg swelling Respiratory: Positive for shortness of breath, cough, denies wheezing GI: Denies abdominal pain, vomiting, nausea, diarrhea, constipation : Denies hematuria Neuro: Positive numbness, tingling Objective: General: No acute distress, patient alert and oriented x3 Cardiovascular: RRR, no murmurs or gallops, normal S1 and S2 Respiratory: Lungs clear to auscultation bilaterally, no wheezing or crackles GI: RUQ pain on light palpation, nondistended, no hepatomegaly : Positive Isaac's sign Neuro: Cranial nerves 2-12 intact, sensation to pinprick and light touch intact bilaterally in the upper and lower extremities Extremities: 5/5 muscle strength testing in upper and lower extremities bilat erally, +2/4 pedal pulses bilaterally, no pitting edema bilaterally Lab: See below Imaging: No new imaging to report Assessment: Judith Rios is a 64 yr old female w/ PMH of multiple CVAs, IDDM, at herosclerosis, atrial fibrillation on Xarelto, HTN, hyperlipidemia presents w/ RUE extremity and right-sided facial weakness. Patient had imaging that was reported by various radiologist to be normal, will receive a SCOTT today. 1. CVA -Patient's imaging for CT Angio of the head, Carotid US, and CT Angio of the neck came back negative -Patient will receive SCOTT today; looking for thrombus, if thrombus appears then patient has failed anticoagulation therapy and will have to change treatment plan for anticoagulation -Will get Vitamin B12 levels today -Telemetry showed no new events overnight -Patient will continue Xarelto -Patient will continue rosuvastatin 40 mg PO daily 2. Chest Pain -Patient has been complaining of chest pain and has history of atherosclerosis, hypertension, afib, and hyperlipidemia -Patient's telemetry showed no new events overnight 3. Insulin Dependent Diabetes Mellitus -Patient may use own insulin pump 4. Chronic atrial fibrillation -Patient is on Xarelto, will continue Xarelto 5. Hypertension -Patient's currently has a BP of 142/86 -Will monitor after SCOTT, patient is currently NPO 6. Asthma -Patient is complaining of having SOB and coughing, was given Robitussin for symptomatic treatment -Patient's lungs were clear to auscultation, is stable 7. DVT prophylaxis -Continue Xarelto Dispo: Patient needs SCOTT, will be done today, discharge pending based on results VS,Fishbone, I+O VS, Fishbone, I+O Laboratory Tests 04/19/20 05:12 Vital Signs Date Time Temp Pulse Resp B/P (MAP) Pulse Ox O2 Delivery O2 Flow Rate FiO2 04/19/20 11:33 97.0 89 18 148/78 (101) 96 Room Air I&O- Last 24 Hours up to 6 AM 04/19/20 06:00 Intake Total 480 ml Output Total 250 ml Balance 230 ml GME ATTESTATION E ATTESTATION My faculty preceptor for this patient encounter was physically present during the encounter and was fully available. All aspects of the patient interview, examination, medical decision making process, and medical care plan development were reviewed and approved by the faculty preceptor. The faculty preceptor is a hinkle and concurs with the plan as stated in the body of this note and will attest to such by his/her cosignature. ATTENDING NOTE Patient was seen and examined by me personally with the residents/ students. I agree with the above assessment and plan QUENTIN ROQUE OMS-IV Apr 19, 2020 13:16 LAMONT MENDOZA MD Apr 24, 2020 12:35
[2020-04-19] MEDS ORDERED: LIDOCAINE VISCOUS 2% SOLN 15ML UDC As Ordered ONE (13:42)
[2020-04-19] MEDS ORDERED: propofoL 200 MG/20 ML VIAL As Ordered ONE (14:20)
[2020-04-19] MEDS: CETACAINE SPRAY 5GM As Ordered ONE ×2 (14:40→14:57)
[2020-04-19] MEDS ORDERED: LR 1,000 ML IV SCH (15:15)
[2020-04-19] MEDS ORDERED: ONDANSETRON 4MG/2ML VIAL IV PRN (15:15)
[2020-04-19 15:45] VITALS: BP 154/86
[2020-04-19] MEDS ORDERED: SLF 3 ML SYR IV PRN (17:00)
[2020-04-19] MEDS ORDERED: RIVAROXABAN 20 MG TAB (XARELTO) PO SCH (18:00)
[2020-04-19] MEDS ORDERED: zolPIDEM TARTRATE 5 MG TAB PO PRN (21:15)
[2020-04-19] MEDS: SLF 3 ML SYR IV SCH (21:49)
[2020-04-20] VITALS: BP 148/64
[2020-04-20 00:17] VITALS: BP 142/80
[2020-04-20 04:00] VITALS: BP 146/88
[2020-04-20 05:27] LABS: BASO % 0.4 % (0.0-1.0); EOS # 0.2 10^3/uL (0.0-0.5); EOS % 1.4 % (0.0-3.0); HEMATOCRIT 38.6 % (36.0-47.0); HEMOGLOBIN 12.6 g/dl (12.0-15.5); LYMPH # 2.6 10^3/uL (1.5-5.0); LYMPH % 24.4 % (24.0-44.0); MEAN CORPUSCULAR HEMOGLOBIN 26.7 pg (27.0-33.0); MEAN CORPUSCULAR HGB CONC 32.6 g/dl (32.0-36.5); MEAN CORPUSCULAR VOLUME 81.8 fl (80.0-96.0); MONO # 0.8 10^3/uL (0.0-0.8); MONO % 6.9 % (0.0-5.0); NEUTROPHILS # 7.2 10^3/uL (1.5-8.5); NEUTROPHILS % 66.5 % (36.0-66.0); PLATELET COUNT, AUTOMATED 279 10^3/uL (150-450); RED BLOOD COUNT 4.72 10^6/uL (4.00-5.40); WHITE BLOOD COUNT 10.8 10^3/uL (4.0-10.0)
[2020-04-20 05:45] LABS: BLOOD UREA NITROGEN 7 MG/DL (7-18); CALCIUM LEVEL 8.3 MG/DL (8.8-10.2); CARBON DIOXIDE LEVEL 24 MEQ/L (21-32); CHLORIDE LEVEL 110 MEQ/L (98-107); CREATININE FOR GFR 0.77 MG/DL (0.55-1.30); GLOMERULAR FILTRATION RATE > 60.0 (>45); GLUCOSE, FASTING 117 MG/DL (70-100); POTASSIUM SERUM 3.8 MEQ/L (3.5-5.1); SODIUM LEVEL 142 MEQ/L (136-145)
[2020-04-20] MEDS: SLF 3 ML SYR IV SCH ×2 (05:54→11:47)
[2020-04-20 08:00] VITALS: BP 144/84
[2020-04-20] MEDS: PANTOPRAZOLE 40MG TAB (PROTONIX) PO SCH (08:40)
[2020-04-20] MEDS: ROSUVASTATIN 10 MG TAB (CRESTOR) PO SCH (08:40)
--- NOTE | 2020-04-20 11:24 | T-ECHO ---
DATE: 04/19/2020 REFERRING PHYSICIAN: Eben Hawley DO INDICATIONS: Acute cryptogenic stroke. PREPROCEDURE DIAGNOSIS: Acute cryptogenic stroke. POSTPROCEDURE DIAGNOSIS: Acute cryptogenic stroke. FINDINGS: Acute cryptogenic stroke. Suspicious for patent foramen ovale, but not proven with certainty. PROCEDURE PERFORMED: Transesophageal echocardiogram with saline bubble study. PERFORMED BY: Harman Patino MD. AIRCRAFT PILOT: None. INTRAVENOUS (IV) SEDATION: Monitored anesthetic care via Propofol IV administered by the VALIDATION SOFTWARE FACILITATOR. COMPLICATIONS: None. DESCRIPTION OF PROCEDURE: Rhythm was sinus. Patient received viscous lidocaine to gargle and swallow. She received IV sedation with Propofol IV administered by the VALIDATION SOFTWARE FACILITATOR. Esophageal intubation was accomplished using a Delgado 3D transesophageal echocardiogram probe by Dr. Patino without difficulty. The left ventricle was only partially visualized mostly at the basal and mid segment levels showed normal wall motion and wall thickening and left ventricular (LV) systolic function with left ventricular ejection fraction (LVEF) of 65% by visual estimate. The apical region of the left ventricle was not well visualized due to technically difficult subcostal images due to air. The left atrium and left atrial appendage appeared to be at least mildly enlarged. No thrombus, masses, or spontaneous echo contrast was seen within the atria or their appendages. Pulmonary vein flow in the left upper pulmonary vein was normal. The atrial septum was highly suspicious for a patent foramen ovale, and there appeared to be some color flow overlapped between the primum and the secundum portions of the atrial septum. No color flow exiting at the site of the suspicious region for patent foramen ovale (PFO) was seen. Saline bubble study x1 was performed using a total of 8 mL of normal saline with 1 mL of Propofol and 1 mL of air. This was performed with the patient in a resting condition without Valsalva maneuver. At the time that the bubble study was being done, the patient was too sedated to be able to follow verbal commands for a Valsalva maneuver release. No bubbles were seen crossing the atrial septum and no bubbles were seen in the left ventricle or left atrium. The right atrium appeared normal in size and without masses or spontaneous echo contrast. Aortic valve was 3- cuspid and appeared structurally functional. No aortic regurgitation. Mitral valve appeared structurally functional. No mitral regurgitation. Mild tricuspid regurgitation was present. Tricuspid and pulmonic valves appeared normal. No pulmonic regurgitation. Right ventricle appeared normal in size and systolic function. No pericardial effusion. Mild atherosclerotic plaque (fatty streaks) were present in the distal aortic arch and descending thoracic aorta. No complex thrombi within the distal aortic arch and descending thoracic aorta. CONCLUSIONS: 1. Suspicious for presence of patent foramen ovale, but cannot be proven with certainty on this study due to patient not able to perform Valsalva maneuver release due to sedation. 2. Visual appearance of at least mild left atrial and left atrial appendage enlargement. No masses or thrombi were seen within the atria or the left atrial appendage. 3. Normal left and right ventricle systolic function. 4. Mild plaque (fatty streaks) in the distal aortic arch and descending thoracic aorta. No complex thrombi were seen within the distal aortic arch or descending thoracic aorta. MTDD
--- NOTE | 2020-04-20 11:49 | DS.PDOC ---
Discharge Summary General Date of Admission Apr 17, 2020 at 23:50 Date of Discharge 04/20/20 Attending Physician: LAMONT MENDOZA MD Discharge Summary PROCEDURES PERFORMED DURING STAY: 1. SCOTT - SCOTT was performed to look for left atrial thrombus to rule out anticoagulation failure as a reason for the CVA; see below for full report ADMITTING DIAGNOSES: 1. CVA DISCHARGE DIAGNOSES: 1. CVA COMPLICATIONS/CHIEF COMPLAINT: CVA. HISTORY OF PRESENT ILLNESS: Ms. Judith Rios is a 64 yr old female who presented to the ED w/ complaints of right sided facial droop, right arm weakness, and difficulty swallowing. These symptoms started at 1830 on 04/16/20. She felt like her face was drooping and was unable to speak clearly. The patient's told her that she was slurring her speech. She also developed weakness in her right arm. She felt as though it was more difficult to walk, however she states that there was no weakness in her legs. The patient also stated that she had di fficulty swallowing and that it was difficult for her to drink water HOSPITAL COURSE: In ED, patient had mild leukocytosis. Was outside the tPA window, thus no thrombolytics were administered. CT of head was negative for any intracranial pathology. Patient also had chest x-ray on 04/17/20 which showed no acute cardiopulmonary findings. Was on telemetry and had EKG done, which showed no abnormalities and no events overnight. Lipid panel came back showing elevated LDL of 126 but otherwise normal. Patient had carotid US, CT angio of neck w/ contrast, and CT Angio of head on 04/18/20 which all came back negative for any pathology. Patient was unable to have an MRI done due to heart monitor loop recorder and instead had a SCOTT under anesthesia, which came back negative for pathology. DISCHARGE MEDICATIONS: Please see below. ALLERGIES: Please see below. PHYSICAL EXAMINATION ON DISCHARGE: VITAL SIGNS: Please see below. GENERAL: Patient in no acute distress, alert and oriented x3 CARDIOVASCULAR EXAMINATION: RRR, no murmurs or gallops, normal S1 and S2 RESPIRATORY EXAMINATION: Lungs clear to auscultation bilaterally, no wheezing or crackles ABDOMINAL EXAMINATION: RUQ tenderness on light palpation, nondistended, no hepatomegaly EXTREMITIES: 5/5 strength testing in upper and lower extremities bilaterally, +2/4 pedal pulses bilaterally, no pitting edema bilaterally NEUROLOGICAL EXAMINATION: Cranial nerves 2-12 intact LABORATORY DATA: Please see below. IMAGING: -CT head w/o contrast on 04/17/[address] Beauchamp showed no acute intracranial pathology -Chest x-ray on 04/17/[address] Beauchamp showed no acute cardiopulmonary findings -Carotid US on 04/18/[address] Rivera showed unremarkable duplex carotid sonography, no evidence of ICA stenosis on either side -CT Angio of neck w/ contrast on 04/18/[address] Rivera showed unremarkable CT angiography of the carotids and neck w/ IV contrast -CT Angio Head on 04/18/[address] Rivera showed unremarkable CT angiography of the brain w/ IV contrast -Transesophageal Echocardiogram on 04/19/[address] Harman Patino showed suspicion for presence of patent foramen ovale, but cannot be proven with certainty on this study due to patient not able to perform Valsalva maneuver release due to sedation, visual appearance of at least mild left atrial and left atrial appendage enlargement; no masses or thrombi were seen within the atria or the left atrial appendage, normal left and right ventricle systolic function, mild plaque (fatty streaks) in the distal aortic arch and descending thoracic aorta; no complex thrombi were seen within the distal aortic arch or descending thoracic aorta PROGNOSIS: Good ACTIVITY: As tolerated DIET: Regular DISCHARGE PLAN: -Vitamin B12 came back 1474, high but not suspicious for macrocytic, megaloblastic anemia -Follow up with PCP or neurologist in 1 week -[facility] will do outpatient SCOTT again, so will need to follow up and make appointment with them DISCHARGE INSTRUCTIONS: 1. Follow up w/ [facility] to have SCOTT done again ITEMS TO FOLLOWUP ON ON OUTPATIENT: 1. Anticoagulation adjustment DISCHARGE CONDITION: Stable TIME SPENT ON DISCHARGE: Greater than 30 minutes. Vital Signs/I&Os Vital Signs Date Time Temp Pulse Resp B/P (MAP) Pulse Ox O2 Delivery O2 Flow Rate FiO2 04/20/20 08:00 98.3 80 18 144/84 (104) 93 Room Air I&O- Last 24 Hours up to 6 AM 04/20/20 06:00 Intake Total 520 ml Output Total 0 ml Balance 520 ml Laboratory Data Labs 24H Laboratory Tests 2 04/20/20 04:52: Immature Granulocyte % (Auto) 0.4, Neutrophils (%) (Auto) 66.5H, Lymphocytes (%) (Auto) 24.4, Monocytes (%) (Auto) 6.9H, Eosinophils (%) (Auto) 1.4, Basophils (%) (Auto) 0.4, Neutrophils # (Auto) 7.2, Lymphocytes # (Auto) 2.6, Monocytes # (Auto) 0.8, Eosinophils # (Auto) 0.2, Basophils # (Auto) 0.0, Nucleated Red Blood Cells % (auto) 0.0, Anion Gap 8, Glomerular Filtration Rate > 60.0, Calcium Level 8.3L, Vitamin B12 Level 1474H CBC/BMP Laboratory Tests 04/20/20 04:52 Microbiology Microbiology 04/18/20 Respiratory Virus Panel (PCR) (MARISSA) - Final, Complete Discharge Medications Scheduled Benzonatate (Tessalon Perle) 100 Mg Capsule, 200 MG PO TID, (Reported) Fluticasone Propion/Salmeterol (Wixela 500-50 Inhub) 1 Each Blst.w.dev, 1 PUFF INH BID, (Reported) Insulin Lispro (Humalog) 100 Unit/1 Ml Cartridge, 1 DOSE SC ASDIRECTED, (Reported) VIA INSULIN PUMP Losartan Potassium (Losartan Potassium) 25 Mg Tablet, 25 MG PO DAILY, (Reported) Metoprolol Succinate (Metoprolol Succinate) 50 Mg Tab.er.24h, 50 MG PO DAILY, (Reported) Pantoprazole Sodium (Pantoprazole Sodium) 40 Mg Tablet.dr, 40 MG PO DAILY, (Reported) Rivaroxaban (Xarelto) 20 Mg Tablet, 20 MG PO DAILY, (Reported) Rosuvastatin Calcium (Rosuvastatin Calcium) 10 Mg Tablet, 10 MG PO DAILY, (Reported) Scheduled PRN Levalbuterol HCl (Levalbuterol HCl) 0.63 Mg/3 Ml Vial.neb, 0.63 MG INH Q6H PRN for SHORTNESS OF BREATH, (Reported) Zolpidem Tartrate (Zolpidem Tartrate ER) 12.5 Mg Tab.mphase, 12.5 MG PO QHS PRN for INSOMNIA, (Reported) Allergies Coded Allergies: nalbuphine (Unverified Adverse Reaction, Unknown, itch, 04/17/20) GME ATTESTATION GME ATTESTATION My faculty preceptor for this patient encounter was physically present during the encounter and was fully available. All aspects of the patient interview, examination, medical decision making process, and medical care plan development were reviewed and approved by the faculty preceptor. The faculty preceptor is aware and concurs with the plan as stated in the body of this note and will attest to such by his/her cosignature. ATTENDING NOTE Patient was seen and examined by me personally with the residents/ students. I agree with the above assessment and plan GME ATTESTATION GME ATTESTATION My faculty preceptor for this patient encounter was physically present during the encounter and was fully available. All aspects of the patient interview, examination, medical decision making process, and medical care plan development were reviewed and approved by the faculty preceptor. The faculty preceptor is aware and concurs with the plan as stated in the body of this note and will attest to such by his/her cosignature. QUENTIN ROQUE OMS-IV Apr 20, 2020 11:48 LAMONT MENDOZA MD Apr 24, 2020 12:39
[2020-04-20 12:00] VITALS: BP 156/52
[2020-04-20] MEDS ORDERED: FLUBLOK(EGG FREE)(QUAD)INFLUENZA VACC 0.5ML SYRINGE 18YRS & OLDER IM ONE (12:30)
[2020-04-21] MEDS ORDERED: FLUBLOK(EGG FREE)(QUAD)INFLUENZA VACC 0.5ML SYRINGE 18YRS & OLDER IM ONE (13:00)
--- NOTE | 2020-04-24 07:15 | ECHO ---
DATE OF PROCEDURE: 04/18/2020 Age: 64 Gender: Female REFERRING PHYSICIAN: Luly Lewis MD INDICATION: Cerebrovascular accident (CVA). MEASUREMENTS: 2D measurements: IVS 1.2 cm LV 3.5 cm LVPW 1.2 cm LA 3.1 cm Aorta 3.1 cm DOPPLER MEASURMENTS: Peak velocity across the aortic valve 1.3 meters per second Peak across the LVOT 1.0 meters per second. Mitral E 0.63, mitral A 0.89 with a ratio of 0.7 COMMENTS: 1. Normal left ventricular size, wall thickness and normal global left ventricular systolic function. Estimated left ventricular systolic ejection fraction is 60 to 65%. 2. Normal left atrium, normal right atrium and right ventricle. 3. The atrial septum appears to be normal without evidence of defect or shunt. 4. Normal aortic root. 5. No pericardial effusion seen. 6. Minimally calcified aortic valve with normal leaflet excursion. Mildly calcified mitral annulus with normal anterior mitral valve leaflet motion. Normal tricuspid valve and pulmonic valve. The proximal pulmonary artery branches were not well visualized. DOPPLER: No significant valvular abnormalities detected. Abnormal relation pattern was noted across the mitral valve leaflets, as well as the mitral annulus consistent with features of grade 1 left ventricular diastolic dysfunction. IMPRESSION: 1. Normal global left ventricular systolic function. There are features of grade 1 left ventricular diastolic dysfunction manifested by abnormal relaxation. 2. Aortic valve sclerosis without stenosis or aortic regurgitation. 3. Mitral annulus calcification without evidence of mitral stenosis or mitral regurgitation. 4. No significant valvular abnormalities detected. [facility]
== END 2020-04-20 16:24 | disposition home or self-care (01) | DRG 45 ==
LOC: M ED 22:52 → M ED INP 23:50 → M PCU 04-18 01:58
PROVIDERS: ADMIT Internal Medicine; ATTEND Internal Medicine
PROC: B246ZZ4 Ultrasonography of Right and Left Heart, Transesophageal (ICD-10-PCS; principal; 2020-04-19 07:30)
DX: I63.9 Cerebral infarction, unspecified (principal); I48.20 Chronic atrial fibrillation, unspecified; I10 Essential (primary) hypertension; Z79.899 Other long term (current) drug therapy; Z79.4 Long term (current) use of insulin; Z88.8 Allergy status to other drugs, medicaments and biological substances; Z79.01 Long term (current) use of anticoagulants; E78.5 Hyperlipidemia, unspecified; E10.9 Type 1 diabetes mellitus without complications; J45.909 Unspecified asthma, uncomplicated; K21.9 Gastro-esophageal reflux disease without esophagitis

== ENCOUNTER → 2020-05-01 | Outpatient (REF) | payer BC ==
[~2020-05-01] MED LIST changes: +BENZ-18; +FLUT1BLS3 INH; +HUMA100I3 SC; +INSU100V2; +LEVA0.6322; +LEVA0.636 INH; +LOSA25TA14; +LOSA25TA14 PO; +METO1TAB7 PO; +ROSU10TA6; +ROSU10TA6 PO; +TESS100C PO; +XARE20TA PO; +ZOLP12.518; +ZOLP12.518 PO
[2020-05-01 18:33] LABS: MALB URINE SIEMENS 7.4 MG/L; MAU/CREAT RATIO 4.8 MCG/MG (0.0-30.0)
== END ==
LOC: M LAB REF 16:58
PROVIDERS: ATTEND Internal Medicine Endocrinology, Diabetes & Metabolism
DX: E11.65 Type 2 diabetes mellitus with hyperglycemia (principal)

== ENCOUNTER 2020-05-23 21:24 | Observation (INO) | payer BC ==
[~2020-05-23] VITALS: Ht 167.6 cm; Wt 82.7 kg
--- NOTE | 2020-05-23 22:07 | REPVR ---
PROCEDURE INFORMATION: Exam: CT Head Without Contrast Exam date and time: 05/23/2020 9:30 PM Age: 64 years old Clinical indication: Weakness, facial; Patient HX: Neuro symptoms TECHNIQUE: Imaging protocol: Computed tomography of the head without contrast. Radiation optimization: All CT scans at this facility use at least one of these dose optimization techniques: automated exposure control; mA and/or kV adjustment per patient size (includes targeted exams where dose is matched to clinical indication); or iterative reconstruction. Other technique: STROKE PROTOCOL was implemented. COMPARISON: CT Head without contrast 04/17/2020 10:58 PM FINDINGS: Brain: Minimal low-density within the periventricular white matter extending into the landeros radiata and the centrum semiovale bilaterally. No hemorrhage. No mass effect. Midline structures intact. Cerebral ventricles: No ventriculomegaly. Bones/joints: Unremarkable. No acute fracture. Paranasal sinuses: Visualized sinuses are unremarkable. No fluid levels. Mastoid air cells: Visualized mastoid air cells are well aerated. Soft tissues: Unremarkable. IMPRESSION: 1. No acute findings. No significant change from previous. 2. Minimal chronic microvascular ischemic change in the deep white matter ASSESSMENT: ASPECTS ([place] Stroke Program Early CT Score) is 10. Electronically signed by: Alysa Duncan On 05/23/2020 22:07:51 PM
[2020-05-23 22:16] LABS: BASO % 0.4 % (0.0-1.0); EOS # 0.2 10^3/uL (0.0-0.5); EOS % 2.1 % (0.0-3.0); HEMATOCRIT 43.9 % (36.0-47.0); HEMOGLOBIN 13.8 g/dl (12.0-15.5); LYMPH # 3.2 10^3/uL (1.5-5.0); MEAN CORPUSCULAR HEMOGLOBIN 25.7 pg (27.0-33.0); MEAN CORPUSCULAR HGB CONC 31.4 g/dl (32.0-36.5); MEAN CORPUSCULAR VOLUME 81.6 fl (80.0-96.0); MONO # 0.6 10^3/uL (0.0-0.8); MONO % 6.2 % (0.0-5.0); NEUTROPHILS # 5.7 10^3/uL (1.5-8.5); NEUTROPHILS % 58.1 % (36.0-66.0); PLATELET COUNT, AUTOMATED 308 10^3/uL (150-450); RED BLOOD COUNT 5.38 10^6/uL (4.00-5.40); WHITE BLOOD COUNT 9.8 10^3/uL (4.0-10.0)
[2020-05-23 22:21] LABS: INR 2.51; PROTHROMBIN TIME 27.7 SECONDS (12.5-14.3)
[2020-05-23 22:33] LABS: BLOOD UREA NITROGEN 10 MG/DL (7-18); CALCIUM LEVEL 8.6 MG/DL (8.8-10.2); CARBON DIOXIDE LEVEL 26 MEQ/L (21-32); CHLORIDE LEVEL 111 MEQ/L (98-107); CK-MB VALUE MASS < 1.0 NG/ML (<3.6); CPK CREATINE PHOSPHOKINASE 107 U/L (26-192); CREATININE FOR GFR 0.91 MG/DL (0.55-1.30); GLOMERULAR FILTRATION RATE > 60.0 (>45); GLUCOSE, FASTING 139 MG/DL (70-100); MB/CK RELATIVE INDEX 0.93 (< OR =4); POTASSIUM SERUM 3.7 MEQ/L (3.5-5.1); SODIUM LEVEL 141 MEQ/L (136-145); TROPONIN I < 0.02 NG/ML (< 0.10)
[2020-05-23] MEDS ORDERED: ISOVUE-370 76% 100ML VIAL As Ordered ONE (22:36)
--- NOTE | 2020-05-23 22:38 | REPVR ---
PROCEDURE INFORMATION: Exam: XR Chest, 1 View Exam date and time: 05/23/2020 10:23 PM Age: 64 years old Clinical indication: Other: CVA TECHNIQUE: Imaging protocol: XR of the chest Views: 1 view. COMPARISON: CR PORTABLE CHEST X-RAY 04/17/2020 11:21 PM FINDINGS: Tubes, catheters and devices: External monitoring devices are present. Loop recording device projects over the cardiac silhouette. Lungs: Coarse linear opacities in both lung bases. Pleural space: Unremarkable. No pleural effusion. No pneumothorax. Heart/Mediastinum: Unremarkable. No cardiomegaly. Bones/joints: Unremarkable. Intraperitoneal space: Surgical clips in the right upper quadrant. IMPRESSION: Bibasilar discoid atelectasis or scar Electronically signed by: Alysa Duncan On 05/23/2020 22:38:45 PM
--- NOTE | 2020-05-23 23:29 | REPVR ---
PROCEDURE INFORMATION: Exam: CT Angiography Neck With Contrast Exam date and time: 05/23/2020 10:52 PM Age: 64 years old Clinical indication: Weakness; Additional info: CVA TECHNIQUE: Imaging protocol: Computed tomography angiography of the neck with intravenous contrast. 3D rendering (Not supervised by radiologist): MIP and/or 3D reconstructed images were created by the technologist. Radiation optimization: All CT scans at this facility use at least one of these dose optimization techniques: automated exposure control; mA and/or kV adjustment per patient size (includes targeted exams where dose is matched to clinical indication); or iterative reconstruction. Contrast material: ISOVUE 370; Contrast volume: 100 ml; Contrast route: INTRAVENOUS (IV); COMPARISON: CT ANGIO NECK 04/18/2020 11:50 AM FINDINGS: Right common carotid artery: No stenosis. No dissection or occlusion. Right internal carotid artery: No stenosis of the extracranial segment. No dissection or occlusion. Right external carotid artery: No occlusion or stenosis of the origin. Right vertebral artery: No stenosis. No dissection or occlusion. Left common carotid artery: No stenosis. No dissection or occlusion. Left internal carotid artery: No stenosis of the extracranial segment. No dissection or occlusion. Left external carotid artery: No occlusion or stenosis of the origin. Left vertebral artery: No stenosis. No dissection or occlusion. Bones/joints: No acute fracture. Incidental torus palatinus in the hard palate. Soft tissues: Normal. No significant soft tissue swelling. IMPRESSION: Unremarkable CTA. No significant stenosis, aneurysm, or vascular occlusion. REFERENCES: NASCET CRITERIA. The degree of internal carotid artery stenosis is based on NASCET criteria. Normal is no stenosis. Mild is less than 50% stenosis. Moderate is 50-69% stenosis. Severe is 70% to 99% stenosis. Total occlusion is no detectable patent lumen. Electronically signed by: Sarabjit Carranza On 05/23/2020 23:29:43 PM
--- NOTE | 2020-05-23 23:40 | REPVR ---
PROCEDURE INFORMATION: Exam: CT Angiography Head With Contrast Exam date and time: 05/23/2020 10:52 PM Age: 64 years old Clinical indication: Weakness; Additional info: CVA TECHNIQUE: Imaging protocol: Computed tomography angiography of the head with intravenous contrast. 3D rendering (Not supervised by radiologist): MIP and/or 3D reconstructed images were created by the technologist. Radiation optimization: All CT scans at this facility use at least one of these dose optimization techniques: automated exposure control; mA and/or kV adjustment per patient size (includes targeted exams where dose is matched to clinical indication); or iterative reconstruction. Contrast material: ISOVUE 370; Contrast volume: 100 ml; Contrast route: INTRAVENOUS (IV); COMPARISON: CT ANGIO HEAD 04/18/2020 11:50 AM FINDINGS: ANTERIOR CIRCULATION: Right internal carotid artery: Unremarkable. Intracranial segment is patent with no significant stenosis. No aneurysm. Right middle cerebral artery: Unremarkable. No occlusion or significant stenosis. No aneurysm. Right anterior cerebral artery: Unremarkable. No occlusion or significant stenosis. No aneurysm. Left internal carotid artery: Unremarkable. Intracranial segment is patent with no significant stenosis. No aneurysm. Left middle cerebral artery: Unremarkable. No occlusion or significant stenosis. No aneurysm. Left anterior cerebral artery: Unremarkable. No occlusion or significant stenosis. No aneurysm. POSTERIOR CIRCULATION: Right vertebral artery: Unremarkable. No occlusion or significant stenosis. No aneurysm. Left vertebral artery: Unremarkable. No occlusion or significant stenosis. No aneurysm. Basilar artery: Unremarkable. No occlusion or significant stenosis. No aneurysm. Right posterior cerebral artery: Unremarkable. No occlusion or significant stenosis. No aneurysm. Left posterior cerebral artery: Unremarkable. No occlusion or significant stenosis. No aneurysm. Brain: No definite mass, mass effect, or midline shift. Cerebral ventricles: No ventriculomegaly. Bones/joints: Unremarkable. No acute fracture. Soft tissues: Unremarkable. IMPRESSION: No large vessel stenosis or occlusion. Electronically signed by: Sarabjit Carranza On 05/23/2020 23:40:07 PM
[2020-05-24] VITALS (7 sets, daily range): BP systolic 132–163; BP diastolic 68–88
[2020-05-24] MEDS ORDERED: GLUCOSE 4GM CHEW TABLET PO PRN (00:45)
[2020-05-24] MEDS ORDERED: GLUCAGON INJ 1MG VIAL SC PRN (00:45)
[2020-05-24] MEDS ORDERED: DEXTROSE 50% 50 ML SYRINGE IV PRN (00:45)
[2020-05-24] MEDS ORDERED: ACETAMINOPHEN TAB 650MG DOSE (2X325MG) PO PRN (00:45)
[2020-05-24] MEDS ORDERED: FLUT1BLS3 INH (01:03)
[2020-05-24] MEDS ORDERED: OYST500T91 PO (01:03)
[2020-05-24] MEDS ORDERED: LEVA0.636 INH (01:03)
[2020-05-24] MEDS ORDERED: AZEL1SPR3 (01:03)
[2020-05-24] MEDS ORDERED: BENZ200C70 PO (01:03)
--- NOTE | 2020-05-24 01:03 | HPEPDOC ---
[facility] Medical History & Physical Date of Admission May 24, 2020 Date of Service: May 24, 2020 History and Physical Chief complaint: Presented to the ER with left facial droop and left lead weakness History of present illness: Patient is a 64-year-old female with a PMHx of IDDM1 (on insulin pump), Hx of CVA (x4; on ASA 81 / Xarelto; s/p Loop recorder), A fib (on Xarelto), HTN, DLP, who presented to the emergency room after she had reported left facial droop and left leg weakness. Patient had seen neurology earlier today and had an MRI completed without any significant findings in the evening. Patient reported she was watching television with her . Her had noted left facial droop, slurred speech that occurred around 6 or 7 PM. Patient had noted left leg weakness and came to the ER for further evaluation. Patient reports that her weakness has improved but still notes some decreased sensation of the left side of her face. ER had contacted [facility] stroke telemedicine. No TPA was indicated given her recent stroke less than 3 months ago and that she was on full anticoagulation with Xarelto. Patient reports a mild headache occurring in the front of her head. Patient describes it as a 7/10 continuous aching, intensity. No sensitivity to light or sound. Patient denies any nausea, vomiting, chest pain, shortness of breath, abdominal pain, constipation, diarrhea, or urinary discomfort. Patient reports that she has been compliant with her medications. Past Medical History: IDDM1 (on insulin pump), Hx of CVA (x4; on ASA / Xarelto; s/p Loop recorder), A fib (on Xarelto), HTN, DLP Past Surgical History: Total hysterectomy Appendectomy Cholecystectomy Bowel adhesion removal Bladder suspension Loop recorder 2016 Allergies: See below Medications: See below Family History: - Mother and father both with a history of strokes Social History: - Denies the use of alcohol or illicit drugs; patient reports social use of alcohol - Denies recent travel or sick contacts - Lives with ; patient lives between [place] in the winter and [place] during the summer Review of Systems: 10 point review of systems complete, all negative otherwise stated in HPI Physical exam: - Vitals: BP [140/73], HR [78], RR [16], Sat [95%RA], Temp [97.3F] - General: Sitting up in bed, No acute distress, Speaking in full sentences, AAOx3 - HEENT: NC, AT, PERRLA - CVS: RRR, +S1S2 - Lungs: Fair air entry bilaterally, No appreciable wheezing / rales / rhonchi - Abdomen: Soft, Non-distended, Non-tender - Extremities: No lower extremity edema, No calf tenderness - Neuro: 5/5 strength at upper / lower extremities bilaterally, decreased sensation of her left face - Skin: No visible rashes Labs: See below Imaging: CT head 05/23: 1. No acute findings. No significant change from previous. 2. Minimal chronic microvascular ischemic change in the deep white matter CXR 05/23: Bibasilar discoid atelectasis or scar CTA neck 05/23: Unremarkable CTA. No significant stenosis, aneurysm, or vascular occlusion. CTA brain 05/23: No large vessel stenosis or occlusion. EKG: See below Assessment and Plan: Left facial droop / Left leg weakness - possibly 2/2 TIA, possibly 2/2 CVA, possibly 2/2 complicate migraine - Patient presented to the ER with left facial droop and left leg weakness - Hemodynamically stable - Physical reveals decreased sensation of her left face - Imaging noted above - Patient has had MRIs completed as an outpatient at neurologys office; reported to show no acute findings - Will repeat MRI brain / Carotid US / ECHO / Cardiac risk profile - Will c/w Rosuvastatin - ER providers discussed with Neurology; c/w Xarelto; DC ASA and start Plavix - Consider Neurology consultation in AM IDDM1 - Patient is on insulin pump - Will continue with insulin pump while inpatient; patient is missing her test strips for her device, will bring it in tomorrow morning Hx of CVA (x4; on ASA / Xarelto; s/p Loop recorder) - See above - Follows with [facility] Neurology as an outpatient; was last seen 05/23 Paroxysmal A fib - c/w rate control with Metoprolol - c/w full anticoagulation with Xarelto HTN - Will allow for permissive hypertension until MRI results - Will hold Losartan for now - c/w Metoprolol with hold parameters DLP - c/w Rosuvastatin GERD - Will c/w Protonix DVT prophylaxis - Will c/w full anticoagulation with Xarelto Vital Signs Vital Signs Date Time Temp Pulse Resp B/P (MAP) Pulse Ox O2 Delivery O2 Flow Rate FiO2 05/24/20 00:16 73 16 97 Room Air 05/24/20 00:01 135/63 (87) 05/23/20 21:25 97.3 Laboratory Data Labs 24H Laboratory Tests 2 05/23/20 21:49: Immature Granulocyte % (Auto) 0.2, Neutrophils (%) (Auto) 58.1, Lymphocytes (%) (Auto) 33.0, Monocytes (%) (Auto) 6.2H, Eosinophils (%) (Auto) 2.1, Basophils (%) (Auto) 0.4, Neutrophils # (Auto) 5.7, Lymphocytes # (Auto) 3.2, Monocytes # (Auto) 0.6, Eosinophils # (Auto) 0.2, Basophils # (Auto) 0.0, Nucleated Red Blood Cells % (auto) 0.0, Prothrombin Time 27.7H, Prothromb Time International Ratio 2.51, Activated Partial Thromboplast Time 47.0H, Anion Gap 4L, Glomerular Filtration Rate > 60.0, Calcium Level 8.6L, Total Creatine Kinase 107, Creatine Kinase MB < 1.0, Creatine Kinase MB Relative Index 0.93, Troponin I < 0.02 05/23/20 22:18: POC Glucose (Misc Panel) 145H, POC Sodium (Misc Panel) 143, POC Potassium (Misc Panel) 3.5, POC Chloride (Misc Panel) 108, POC Total CO2 (Misc Panel) 23.0, POC Blood Urea Nitrogen (Misc Panel 9, POC Ionized Calcium (Misc Panel) 4.6, POC Creatinine (Misc Panel) 0.7, POC Hematocrit (Misc Panel) 47.0 05/23/20 22:36: POC Prothrombin Time (Misc) 26.2H, POC INR (Misc) 2.3 05/23/20 23:51: Coronavirus (COVID-19)(PCR) NEGATIVE CBC/BMP Laboratory Tests 05/23/20 21:49 Home Medications Scheduled Insulin Lispro (Humalog) 100 Unit/1 Ml Cartridge, 1 DOSE SC ASDIRECTED VIA INSULIN PUMP Losartan Potassium (Losartan Potassium) 25 Mg Tablet, 25 MG PO DAILY Metoprolol Succinate (Metoprolol Succinate) 50 Mg Tab.er.24h, 50 MG PO DAILY Pantoprazole Sodium (Pantoprazole Sodium) 40 Mg Tablet.dr, 40 MG PO DAILY Rivaroxaban (Xarelto) 20 Mg Tablet, 20 MG PO DAILY Rosuvastatin Calcium (Rosuvastatin Calcium) 10 Mg Tablet, 10 MG PO DAILY Scheduled PRN Zolpidem Tartrate (Zolpidem Tartrate ER) 12.5 Mg Tab.mphase, 12.5 MG PO QHS PRN for INSOMNIA Allergies Coded Allergies: nalbuphine (Unverified Adverse Reaction, Unknown, itch, 04/17/20) BRUCE GUAJARDO MD May 24, 2020 01:03
[2020-05-24] MEDS ORDERED: AZELASTINE 137MCG NASAL SPY 30 ML (ASTELIN) PRN (01:30)
[2020-05-24] MEDS ORDERED: LEVALBUTEROL 1.25 MG/0.5 ML CONCENTRATE NEB INH PRN (01:30)
[2020-05-24] MEDS: HumaLOG INSULIN (NovoLOG) PER UNIT SC SCH ×3 (07:28→17:30)
[2020-05-24] MEDS: ADVAIR HFA 230/21MCG INHALER INH SCH ×2 (07:51→19:15)
[2020-05-24] MEDS: LEVALBUTEROL 1.25 MG/0.5 ML CONCENTRATE NEB INH SCH ×4 (07:51→19:15)
[2020-05-24] MEDS: CALCIUM/VITAMIN D 500 MG TAB PO SCH ×2 (08:18→21:01)
[2020-05-24] MEDS ORDERED: METOPROLOL SUCC (TopROL XL) 50MG **XL** TAB PO SCH (09:00)
[2020-05-24] MEDS ORDERED: CLOPIDOGREL 75 MG TAB PO SCH (09:00)
[2020-05-24] MEDS ORDERED: PANTOPRAZOLE 40MG TAB (PROTONIX) PO SCH (09:00)
[2020-05-24] MEDS ORDERED: ROSUVASTATIN 10 MG TAB (CRESTOR) PO SCH (09:00)
[2020-05-24] MEDS ORDERED: SLF 3 ML SYR IV PRN (11:30)
--- NOTE | 2020-05-24 12:23 | REPVR ---
PROCEDURE INFORMATION: Exam: MR Head Without Contrast Exam date and time: 05/24/2020 12:38 AM Age: 64 years old Clinical indication: Weakness, facial; Additional info: L facial droop TECHNIQUE: Imaging protocol: MR of the head without contrast. COMPARISON: CT Head without contrast 05/23/2020 9:30 PM FINDINGS: Brain: There is no acute intracranial hemorrhage, cerebral edema, or midline shift. No restricted diffusion is present to suggest acute infarction. Cerebral ventricles: No hydrocephalus. Bones/joints: Unremarkable. Paranasal sinuses: Normal as visualized. No acute sinusitis. Mastoid air cells: Normal as visualized. No mastoid effusion. Orbits: Unremarkable. Soft tissues: Unremarkable. IMPRESSION: No acute findings. Electronically signed by: Filipe Mendez On 05/24/2020 12:24:13 PM
[2020-05-24] MEDS: SLF 3 ML SYR IV SCH ×2 (14:00→21:23)
--- NOTE | 2020-05-24 14:41 | IPNPDOC ---
Text Note Date of Service The patient was seen on 05/24/20. NOTE Subjective: No any acute events overnight. Patient stated that she has left f acial numbness. Left leg weakness and left arm weakness resolved. Patient continues to have left facial droop Objective: GENERAL APPEARANCE: NAD HEENT: no scleral icterus, no JVD, EOMI CARDIOVASCULAR: S1S2 LUNGS: CTA ABDOMEN: soft & not tender w palpitation MUSCULOSKELETAL: no cyanosis, no swelling INTEGUMENT: no generalized palor NEUROLOGICAL: Left facial droop, left facial numbness ( cranial nerves V and VII deficiency )follows commands, speech not dysarthric Assessment and plan Patient is a 64-year-old female with a PMHx of IDDM1 (on insulin pump), Hx of CVA (x4; on ASA 81 / Xarelto; s/p Loop recorder), A fib (on Xarelto), HTN, DLP, who presented to the emergency room after she had reported left facial droop and left leg weakness Left facial droop / Left leg weakness Head CT, CTA, MRI negative for stroke There is concern for psychosomatic disorder versus complex migraine versus TIA appreciate/agree with neurologist IDDM1 Patient is on insulin pump Diabetes diet Paroxysmal A fib Patient has sinus rhythm - c/w rate control with Metoprolol - c/w full anticoagulation with Xarelto Patient has non working loop recorder. Follow-up with mill laborer in the outpa tient settings History of CVA I talked to Dr. Abraham , there is no record that the patient had CVA in the past Hypertension Blood pressures under control Continue home cardioprotective medications Hyperlipidemia Continue statin GERD Continue PPI VS,Fishbone, I+O VS, Fishbone, I+O Laboratory Tests 05/23/20 21:49 Vital Signs Date Time Temp Pulse Resp B/P (MAP) Pulse Ox O2 Delivery O2 Flow Rate FiO2 05/24/20 12:40 97.8 77 18 150/88 (108) 96 Room Air KELLI OLEARY DO May 24, 2020 14:41
[2020-05-24] MEDS ORDERED: LOSARTAN 25 MG TAB PO SCH (14:45)
[2020-05-24] MEDS ORDERED: RIVAROXABAN 20 MG TAB (XARELTO) PO SCH (18:00)
[2020-05-24] MEDS ORDERED: HumaLOG INSULIN (NovoLOG) PER UNIT SC SCH (21:00)
--- NOTE | 2020-05-25 08:02 | ECGEPIP ---
[facility] - ED Test Date: 2020-05-23 Pat Name: POLLO DELAROSA Department: Room: Gender: Female Driver Courier: BRIANA : 1955 Requested By: CHARLIE Christopher Order Number: [id number] Reading MD: Karol Berrios Measurements Intervals [place] Rate: 70 P: 22 [place]: 169 QRS: 6 QRSD: 79 T: 7 QT: 386 QTc: 418 Interpretive Statements SINUS RHYTHM DECREASED RATE 04/17/20 Electronically Signed on 05-25-2020 8:01:51 EST by Karol Berrios
--- NOTE | 2020-05-25 17:42 | DS.PDOC ---
Discharge Summary General Date of Admission May 23, 2020 at 21:25 Date of Discharge 05/24/20 Discharge Summary PROCEDURES PERFORMED DURING STAY: [None]. ADMITTING DIAGNOSES: Paroxysmal A fib IDDM1 Left facial droop / Left leg weakness History of CVA Hypertension GERD DISCHARGE DIAGNOSES: Paroxysmal A fib IDDM1 Left facial droop / Left leg weakness History of CVA Hypertension GERD COMPLICATIONS/CHIEF COMPLAINT: CVA. HISTORY OF PRESENT ILLNESS: Patient is a 64-year-old female with a PMHx of IDDM1 (on insulin pump), Hx of CVA (x4; on ASA 81 / Xarelto; s/p Loop recorder), A fib (on Xarelto), HTN, DLP, who presented to the emergency room after she had reported left facial droop and left leg weakness HOSPITAL COURSE: During hospital stay following issue addressed Left facial droop / Left leg weakness Head CT, CTA, MRI negative for stroke There is concern for psychosomatic disorder versus complex migraine neurologist team recommended follow-up with psychiatrist IDDM1 Patient is on insulin pump Diabetes diet Paroxysmal A fib Patient has sinus rhythm - c/w rate control with Metoprolol - c/w full anticoagulation with Xarelto Patient has non working loop recorder. Follow-up with interactive media project manager in the outpatient settings History of CVA I talked to Dr. Abraham , there is no record that the patient had CVA in the past Hypertension Blood pressures under control Continue home cardioprotective medications Hyperlipidemia Continue statin GERD Continue PPI DISCHARGE MEDICATIONS: Please see below. ALLERGIES: Please see below. PHYSICAL EXAMINATION ON DISCHARGE: VITAL SIGNS: Please see below. GENERAL APPEARANCE: NAD HEENT: no scleral icterus, no JVD, EOMI CARDIOVASCULAR: S1S2 LUNGS: CTA ABDOMEN: soft & not tender w palpitation MUSCULOSKELETAL: no cyanosis, no swelling INTEGUMENT: no generalized palor NEUROLOGICAL: Left facial droop, left facial numbness ( cranial nerves V and VII deficiency )follows commands, speech not dysarthric LABORATORY DATA: Please see below. IMAGING: PROCEDURE INFORMATION: Exam: MR Head Without Contrast Exam date and time: 05/24/2020 12:38 AM Age: 64 years old Clinical indication: Weakness, facial; Additional info: L facial droop TECHNIQUE: Imaging protocol: MR of the head without contrast. COMPARISON: CT Head without contrast 05/23/2020 9:30 PM FINDINGS: Brain: There is no acute intracranial hemorrhage, cerebral edema, or midline shift. No restricted diffusion is present to suggest acute infarction. Cerebral ventricles: No hydrocephalus. Bones/joints: Unremarkable. Paranasal sinuses: Normal as visualized. No acute sinusitis. Mastoid air cells: Normal as visualized. No mastoid effusion. Orbits: Unremarkable. Soft tissues: Unremarkable. IMPRESSION: No acute findings. Electronically signed by: Khushi Banks On 05/24/2020 12:24:13 PM DD: KHUSHI BANKS MD, MD 05/24/20 0038 PROGNOSIS: Fair ACTIVITY: [As tolerated]. DIET: Cardiac DISPOSITION: 01 Home, Self-Care. . ITEMS TO FOLLOWUP ON ON OUTPATIENT: Follow-up with psychiatrist in the outpatient settings DISCHARGE CONDITION: [Stable]. TIME SPENT ON DISCHARGE: Greater than 40 minutes. Vital Signs/I&Os Vital Signs Date Time Temp Pulse Resp B/P (MAP) Pulse Ox O2 Delivery O2 Flow Rate FiO2 05/24/20 20:00 132/84 05/24/20 15:33 97.4 66 18 99 Room Air I&O- Last 24 Hours up to 6 AM 05/25/20 06:00 Intake Total 480 ml Output Total 0 ml Balance 480 ml Discharge Medications Scheduled Calcium Carbonate/Vitamin D3 (Calcium 500-Vit D3 200 Tablet) 1 Each Tablet, 1 TAB PO BID, (Reported) Fluticasone Propion/Salmeterol ([place]ela 500-50 Inhub) 1 Each Blst.w.dev, 1 PUFF INH BID, (Reported) Insulin Lispro (Humalog) 100 Unit/1 Ml Cartridge, 1 DOSE SC ASDIRECTED, (Reported) VIA INSULIN PUMP Losartan Potassium (Losartan Potassium) 25 Mg Tablet, 25 MG PO DAILY, (Reported) Metoprolol Succinate (Metoprolol Succinate) 50 Mg Tab.er.24h, 50 MG PO DAILY, (Reported) Pantoprazole Sodium (Pantoprazole Sodium) 40 Mg Tablet.dr, 40 MG PO DAILY, (Reported) Rivaroxaban (Xarelto) 20 Mg Tablet, 20 MG PO DAILY, (Reported) Rosuvastatin Calcium (Rosuvastatin Calcium) 10 Mg Tablet, 10 MG PO DAILY, (Reported) Scheduled PRN Azelastine HCl (Azelastine HCl) 0.1% [place].pump, 1 SPRAY NA BID PRN for NASAL CONGESTION, (Reported) Benzonatate (Benzonatate) 200 Mg Capsule, 200 MG PO Q8H PRN for COUGH, (Reported) Levalbuterol HCl (Levalbuterol HCl) 0.63 Mg/3 Ml Vial.neb, 0.63 MG INH Q6H PRN for SHORTNESS OF BREATH, (Reported) Zolpidem Tartrate (Zolpidem Tartrate ER) 12.5 Mg Tab.mphase, 12.5 MG PO QHS PRN for INSOMNIA, (Reported) Allergies Coded Allergies: nalbuphine (Unverified Adverse Reaction, Unknown, itch, 04/17/20) KELLI OLEARY DO May 25, 2020 17:42
== END 2020-05-24 21:57 | disposition home or self-care (01) ==
LOC: M ED 21:24 → M ED INP 21:25 → ENRESERV 05-24 06:51 → M PCU 05-24 10:47
PROVIDERS: ADMIT Internal Medicine; ATTEND Internal Medicine
DX: I48.0 Paroxysmal atrial fibrillation (principal); R29.810 Facial weakness; E10.9 Type 1 diabetes mellitus without complications; Z86.73 Personal history of transient ischemic attack (TIA), and cerebral infarction without residual deficits; I10 Essential (primary) hypertension; K21.9 Gastro-esophageal reflux disease without esophagitis; E78.49 Other hyperlipidemia; Z96.41 Presence of insulin pump (external) (internal); Z79.4 Long term (current) use of insulin; Z79.01 Long term (current) use of anticoagulants; Z79.82 Long term (current) use of aspirin; Z88.8 Allergy status to other drugs, medicaments and biological substances
CPT/HCPCS: 70450; 70496; 70498; 70551; 71045; 80047; 80048; 82550; 82553; 84484; 85025; 85610; 85730; 86850; 86900; 86901; 92526; 92610; 93005; 93041; 94640; 94760; 99285; Q9967; U0002

== ENCOUNTER → 2021-01-28 | Outpatient (CLI) | payer MEDICARE ==
[~2021-01-28] MED LIST changes: -AMIT10TA PO; +AMIT10TA7 PO; +AZEL1SPR3; +BENZ200C70 PO; -LISI-542 PO; +LISI5TAB11 PO; +LOSA25TA13; +LOSA25TA13 PO; -LOSA25TA14; -LOSA25TA14 PO; +OYST500T91 PO
== END ==
LOC: M PLAIMG 13:29
PROVIDERS: ATTEND Nurse Practitioner Adult Health
DX: R91.1 Solitary pulmonary nodule (principal); J45.909 Unspecified asthma, uncomplicated

== ENCOUNTER → 2021-02-19 | Outpatient (REF) | payer MEDICARE ==
[~2021-02-19] MED LIST changes: +LISI-898 PO; -LISI5TAB11 PO; -LOSA25TA13; -LOSA25TA13 PO; +LOSA25TA14; +LOSA25TA14 PO
== END ==
LOC: M LAB REF 18:00
PROVIDERS: ATTEND Physician Assistant
DX: J01.90 Acute sinusitis, unspecified (principal)

== ENCOUNTER → 2021-03-12 | Outpatient (CLI) | payer MEDICARE ==
--- NOTE | 2021-03-12 13:49 | REP ---
INDICATION: BATES. COMPARISON: Comparison CT study May 23, 2020. Comparison MRI study May 24, 2020. TECHNIQUE: Helical scanning is acquired. 5 mm axial images were reformatted. Coronal MPR images were generated. FINDINGS: Bone window settings demonstrate an intact bony calvarium. There is no evidence of skull fracture or incidental bony calvarial lesion. The visualized paranasal sinuses appear clear. No intraorbital abnormality is seen. On soft tissue window setting images; the lateral, third, and fourth ventricles are normal in size and position. Lyons-white differentiation pattern is normal above and below the tentorium. There are is no evidence of intracranial hemorrhage. No mass, edema, infarction, or midline shift is seen. No extra-axial fluid collection is appreciated. IMPRESSION: Negative noncontrast head CT. <Electronically signed by Nura Rivera > 03/12/21 [id number]
== END ==
LOC: M RAD 13:24
PROVIDERS: ATTEND Physician Assistant
DX: R51.9 Headache, unspecified (principal)

== ENCOUNTER → 2021-05-15 | Outpatient (CLI) | payer MEDICARE ==
--- NOTE | 2021-05-29 08:41 | REPMRS ---
Patient History The patient states she has not had a clinical breast exam in over a year. Patient is postmenopausal and has history of other cancer. No known family history of cancer. Took estrogen for 1 year beginning at age 45. Took progesterone for 1 year beginning at age 45. Tomosynthesis is performed. [place] breast density is c. [facility] lifetime risk of breast cancer 4.7%. Patient states no breast complaints today. Patient has signed MRS History Sheet. Digital Woman Screen Mammo: May 15, 2021 - Exam #: [id number] Bilateral CC and MLO view(s) were taken. Technologist: Andreea Solis Commercial Lending Relationship Manager FINDINGS: The breast tissue is heterogeneously dense. This may lower the sensitivity of mammography. There has been no change in the appearance of the mammogram from the prior studies. There is a moderate amount of residual fibroglandular tissue which is fairly symmetric. There is no interval development of dominant mass, areas of architectural distortion, or clustered microcalcification typical of malignancy. Assessment: BI-RADS/ACR category 1 mammogram. Negative Mammogram. Recommendation Routine screening mammogram in 1 year (for women over age 40). This mammogram was interpreted with the aid of an FDA-approved computer-aided dectection system. Electronically Signed By: Leroy Lyons MD 05/29/21 [id number]
== END ==
LOC: M WHC 14:24
PROVIDERS: ATTEND Physician Assistant
DX: Z12.31 Encounter for screening mammogram for malignant neoplasm of breast (principal); Z78.0 Asymptomatic menopausal state; Z85.9 Personal history of malignant neoplasm, unspecified

== ENCOUNTER → 2021-05-21 | Outpatient (REF) | payer MEDICARE ==
[~2021-05-21] MED LIST changes: -LISI-898 PO; +LISI5TAB11 PO; +LOSA25TA13; +LOSA25TA13 PO; -LOSA25TA14; -LOSA25TA14 PO
== END ==
LOC: M LAB REF 17:25
PROVIDERS: ATTEND Physician Assistant
DX: N39.0 Urinary tract infection, site not specified (principal)

== ENCOUNTER → 2021-06-07 | Outpatient (REF) | payer MEDICARE ==
[2021-06-07 17:30] LABS: APPEARANCE, URINE CLEAR (CLEAR); BACTERIA, URINE AUTO 1+ (NEGATIVE); BILIRUBIN, URINE AUTO NEGATIVE (NEGATIVE); BLOOD, URINE BLOOD NEGATIVE (NEGATIVE); COLOR, URINE YELLOW (YELLOW); GLUCOSE, URINE (UA) AUTO NEGATIVE (NEGATIVE); KETONE, URINE AUTO NEGATIVE (NEGATIVE); LEUKOCYTE ESTERASE, URINE AUTO NEGATIVE (NEGATIVE); MUCUS, URINE SMALL (NEGATIVE); NITRITE, URINE AUTO NEGATIVE (NEGATIVE); PROTEIN, URINE AUTO NEGATIVE (NEGATIVE); RBC, URINE AUTO 0 /HPF (0-3); SPECIFIC GRAVITY URINE AUTO 1.011 (1.002-1.035); SQUAMOUS EPITHELIAL CELL UR AU 0 /HPF (0-6); UROBILINOGEN, URINE AUTO 0.2 mg/dL (0.0-2.0); WBC, URINE AUTO 1 /HPF (0-3)
== END ==
LOC: M SMT 17:07
PROVIDERS: ATTEND Nurse Practitioner Women's Health
DX: R10.2 Pelvic and perineal pain (principal); R33.9 Retention of urine, unspecified; R30.0 Dysuria
CPT/HCPCS: 51798; 81001; 87088; 87184; 87186; G0463

== ENCOUNTER → 2021-11-21 | Outpatient (CLI) | payer MEDICARE ==
[2021-11-21 10:46] LABS: HEMATOCRIT 43.6 % (36.0-47.0); HEMOGLOBIN 14.1 g/dl (12.0-15.5); MEAN CORPUSCULAR HEMOGLOBIN 26.9 pg (27.0-33.0); MEAN CORPUSCULAR HGB CONC 32.3 g/dl (32.0-36.5); PLATELET COUNT, AUTOMATED 256 10^3/uL (150-450); RED BLOOD COUNT 5.25 10^6/uL (4.00-5.40); WHITE BLOOD COUNT 8.4 10^3/uL (4.0-10.0)
[2021-11-21 10:51] LABS: ALT/SGPT 31 U/L (12-78); BILIRUBIN,TOTAL 0.4 MG/DL (0.2-1.0); BLOOD UREA NITROGEN 13 MG/DL (7-18); CALCIUM LEVEL 9.2 MG/DL (8.8-10.2); CARBON DIOXIDE LEVEL 30 MEQ/L (21-32); CHLORIDE LEVEL 109 MEQ/L (98-107); CHOLESTEROL LEVEL 161 MG/DL (<200); CHOLESTEROL RISK RATIO 2.927 (<5); CREATININE FOR GFR 0.83 MG/DL (0.55-1.30); GLOMERULAR FILTRATION RATE > 60.0 (>45); GLUCOSE, FASTING 171 MG/DL (70-100); HDL CHOLESTEROL 55 MG/DL (>40); LDL CHOLESTEROL 83 MG/DL (<100); NON-HDL-C 106 MG/DL; POTASSIUM SERUM 3.9 MEQ/L (3.5-5.1); SODIUM LEVEL 142 MEQ/L (136-145); TRIGLYCERIDES LEVEL 117 MG/DL (<150)
[2021-11-21 10:52] LABS: ALBUMIN 3.4 GM/DL (3.2-5.2)
[2021-11-21 11:16] LABS: CREATININE, URINE 99.7 MG/DL; MALB URINE SIEMENS 11.3 MG/L; MAU/CREAT RATIO 11.3 MCG/MG (0.0-30.0)
== END ==
LOC: M PLALAB 08:14
PROVIDERS: ATTEND Internal Medicine Endocrinology, Diabetes & Metabolism
DX: E11.65 Type 2 diabetes mellitus with hyperglycemia (principal)

== ENCOUNTER → 2021-12-05 | Outpatient (REF) | payer MEDICARE ==
[2021-12-05 16:02] LABS: APPEARANCE, URINE HAZY (CLEAR); BACTERIA, URINE AUTO NEGATIVE (NEGATIVE); BILIRUBIN, URINE AUTO NEGATIVE (NEGATIVE); BLOOD, URINE BLOOD NEGATIVE (NEGATIVE); COLOR, URINE YELLOW (YELLOW); GLUCOSE, URINE (UA) AUTO NEGATIVE (NEGATIVE); KETONE, URINE AUTO NEGATIVE (NEGATIVE); LEUKOCYTE ESTERASE, URINE AUTO NEGATIVE (NEGATIVE); MUCUS, URINE SMALL (NEGATIVE); NITRITE, URINE AUTO NEGATIVE (NEGATIVE); PROTEIN, URINE AUTO NEGATIVE (NEGATIVE); RBC, URINE AUTO 0 /HPF (0-3); SPECIFIC GRAVITY URINE AUTO 1.012 (1.002-1.035); SQUAMOUS EPITHELIAL CELL UR AU 1 /HPF (0-6); UROBILINOGEN, URINE AUTO 0.2 mg/dL (0.0-2.0); WBC, URINE AUTO 5 /HPF (0-3)
== END ==
LOC: M SMT 15:05
PROVIDERS: ATTEND Physician Assistant
DX: N39.0 Urinary tract infection, site not specified (principal)

== ENCOUNTER → 2021-12-31 | Outpatient (REF) | payer MEDICARE ==
[2021-12-31 17:54] LABS: APPEARANCE, URINE CLEAR (CLEAR); BACTERIA, URINE AUTO 1+ (NEGATIVE); BILIRUBIN, URINE AUTO NEGATIVE (NEGATIVE); BLOOD, URINE BLOOD NEGATIVE (NEGATIVE); COLOR, URINE YELLOW (YELLOW); GLUCOSE, URINE (UA) AUTO 1+ mg/dL (NEGATIVE); KETONE, URINE AUTO NEGATIVE (NEGATIVE); LEUKOCYTE ESTERASE, URINE AUTO NEGATIVE (NEGATIVE); MUCUS, URINE SMALL (NEGATIVE); NITRITE, URINE AUTO NEGATIVE (NEGATIVE); PROTEIN, URINE AUTO NEGATIVE (NEGATIVE); RBC, URINE AUTO 0 /HPF (0-3); SPECIFIC GRAVITY URINE AUTO 1.013 (1.002-1.035); SQUAMOUS EPITHELIAL CELL UR AU 0 /HPF (0-6); UROBILINOGEN, URINE AUTO 0.2 mg/dL (0.0-2.0); WBC, URINE AUTO 1 /HPF (0-3)
== END ==
LOC: M SMT 17:04
PROVIDERS: ATTEND Physician Assistant
DX: N39.0 Urinary tract infection, site not specified (principal)

== ENCOUNTER → 2022-02-11 | Outpatient (REF) | payer MEDICARE ==
[2022-02-11 17:43] LABS: APPEARANCE, URINE MANUAL CLEAR (CLEAR); BILIRUBIN, URINE MANUAL NEGATIVE (NEGATIVE); BLOOD URINE MANUAL NEGATIVE (NEGATIVE); COLOR, URINE MANUAL YELLOW (YELLOW); GLUCOSE, URINE (UA) MANUAL NEGATIVE (NEGATIVE); KETONE, URINE MANUAL NEGATIVE (NEGATIVE); LEUKOCYTE ESTERASE, URINE MAN NEGATIVE (NEGATIVE); NITRITE, URINE MANUAL NEGATIVE (NEGATIVE); PROTEIN, URINE MANUAL NEGATIVE (NEGATIVE); SPECIFIC GRAVITY,URINE MANUAL 1.015 (1.002-1.035); UROBILINOGEN, URINE MANUAL NORMAL (NORMAL)
== END ==
LOC: M SMT 16:54
PROVIDERS: ATTEND Physician Assistant
DX: N39.0 Urinary tract infection, site not specified (principal)

== ENCOUNTER → 2022-02-18 | Outpatient (CLI) | payer MEDICARE ==
[2022-02-18 20:53] LABS: HEMOGLOBIN A1c 8.1 %
== END ==
LOC: M PLALAB 15:53
PROVIDERS: ATTEND Internal Medicine Endocrinology, Diabetes & Metabolism
DX: E11.65 Type 2 diabetes mellitus with hyperglycemia (principal)

== ENCOUNTER → 2022-05-09 | Outpatient (REF) | payer MEDICARE ==
[~2022-05-09] MED LIST changes: +CLOP75TA99 PO; +LIBR5CAP PO; -PLAV1TAB2 PO
[2022-05-09 13:54] LABS: APPEARANCE, URINE MANUAL HAZY (CLEAR); COLOR, URINE MANUAL YELLOW (YELLOW)
[2022-05-09 13:56] LABS: BILIRUBIN, URINE MANUAL NEGATIVE (NEGATIVE); BLOOD URINE MANUAL NEGATIVE (NEGATIVE); GLUCOSE, URINE (UA) MANUAL NEGATIVE (NEGATIVE); KETONE, URINE MANUAL NEGATIVE (NEGATIVE); LEUKOCYTE ESTERASE, URINE MAN POSITIVE (NEGATIVE); NITRITE, URINE MANUAL POSITIVE (NEGATIVE); PROTEIN, URINE MANUAL NEGATIVE (NEGATIVE); SPECIFIC GRAVITY,URINE MANUAL 1.015 (1.002-1.035); UROBILINOGEN, URINE MANUAL NORMAL (NORMAL)
[2022-05-09 14:06] LABS: BACTERIA, URINE LARGE AMOUNT; HYALINE CAST, URINE NONE SEEN /lpf (0-1); MUCUS, URINE MOD AMOUNT (NEGATIVE); RBC, URINE 0-1 /hpf (0-3); SQUAMOUS EPITHELIAL CELL URINE MOD AMOUNT /hpf (SMALL AMT); WBC, URINE TNTC /hpf (0-3)
== END ==
LOC: M SMT 13:29
PROVIDERS: ATTEND Physician Assistant
DX: R30.0 Dysuria (principal)

== ENCOUNTER → 2022-06-04 | Outpatient (CLI) | payer MEDICARE | LOC: M LAB 10:06 | PROVIDERS: ATTEND Internal Medicine Endocrinology, Diabetes & Metabolism | DX: E11.65 Type 2 diabetes mellitus with hyperglycemia (principal); Z96.41 Presence of insulin pump (external) (internal) ==

== ENCOUNTER → 2022-12-17 | Outpatient (REF) | payer MEDICARE ==
[2022-12-17 14:37] LABS: APPEARANCE, URINE CLEAR (CLEAR); BACTERIA, URINE AUTO 1+ (NEGATIVE); BILIRUBIN, URINE AUTO NEGATIVE (NEGATIVE); BLOOD, URINE BLOOD NEGATIVE (NEGATIVE); COLOR, URINE YELLOW (YELLOW); GLUCOSE, URINE (UA) AUTO NEGATIVE (NEGATIVE); KETONE, URINE AUTO NEGATIVE (NEGATIVE); LEUKOCYTE ESTERASE, URINE AUTO NEGATIVE (NEGATIVE); NITRITE, URINE AUTO NEGATIVE (NEGATIVE); PROTEIN, URINE AUTO NEGATIVE (NEGATIVE); RBC, URINE AUTO 0 /HPF (0-3); SPECIFIC GRAVITY URINE AUTO 1.013 (1.002-1.035); SQUAMOUS EPITHELIAL CELL UR AU 1 /HPF (0-6); UROBILINOGEN, URINE AUTO 0.2 mg/dL (0.0-2.0); WBC, URINE AUTO 2 /HPF (0-3)
== END ==
LOC: M SMT 13:06
PROVIDERS: ATTEND Physician Assistant
DX: R30.0 Dysuria (principal)

== ENCOUNTER → 2023-01-13 | Outpatient (CLI) | payer MEDICARE ==
[~2023-01-13] MED LIST changes: +GASTROGRAFIN SOLUTION 30ML ONE; -INSU100V2; +INSU100V6
== END ==
LOC: M PLAIMG 10:09
PROVIDERS: ATTEND Family Medicine
DX: R10.30 Lower abdominal pain, unspecified (principal)
CPT/HCPCS: 74176; Q9963

== ENCOUNTER → 2023-04-27 | Outpatient (REF) | payer MEDICARE ==
[~2023-04-27] MED LIST changes: +CLON-952 PO; -GASTROGRAFIN SOLUTION 30ML ONE; -KLON2TAB PO
== END ==
LOC: M LAB REF 17:08
PROVIDERS: ATTEND Nurse Practitioner Adult Health
DX: R30.0 Dysuria (principal)

== ENCOUNTER → 2023-06-24 | Outpatient (CLI) | payer MEDICARE ==
[2023-06-24 15:59] LABS: BLOOD UREA NITROGEN 16 MG/DL (9-23); CALCIUM LEVEL 8.7 MG/DL (8.3-10.6); CARBON DIOXIDE LEVEL 23 MMOL/L (20-31); CHLORIDE LEVEL 111 MMOL/L (98-107); CREATININE FOR GFR 0.64 MG/DL (0.55-1.30); GLOMERULAR FILTRATION RATE > 60.0 (>45); GLUCOSE, FASTING 153 MG/DL (74-106); POTASSIUM SERUM 4.1 MMOL/L (3.5-5.1); SODIUM LEVEL 139 MMOL/L (136-145)
[2023-06-24 16:01] LABS: BASO # 0.1 10^3/uL (0.0-0.2); BASO % 0.7 % (0.0-1.0); EOS # 0.1 10^3/uL (0.0-0.5); EOS % 1.9 % (0.0-3.0); HEMOGLOBIN 14.7 g/dl (12.0-15.5); LYMPH # 2.5 10^3/uL (1.5-5.0); LYMPH % 37.1 % (24.0-44.0); MEAN CORPUSCULAR HEMOGLOBIN 27.3 pg (27.0-33.0); MEAN CORPUSCULAR HGB CONC 32.7 g/dl (32.0-36.5); MEAN CORPUSCULAR VOLUME 83.6 fl (80.0-96.0); MONO # 0.4 10^3/uL (0.0-0.8); MONO % 5.9 % (2.0-8.0); NEUTROPHILS # 3.7 10^3/uL (1.5-8.5); NEUTROPHILS % 54.1 % (36.0-66.0); PLATELET COUNT, AUTOMATED 202 10^3/uL (150-450); RED BLOOD COUNT 5.38 10^6/uL (4.00-5.40); WHITE BLOOD COUNT 6.8 10^3/uL (4.0-10.0)
== END ==
LOC: M LAB 12:01 → M PLALAB 12:01
PROVIDERS: ATTEND Family Medicine
DX: Z01.818 Encounter for other preprocedural examination (principal)

== ENCOUNTER 2023-06-30 06:50 | Observation (INO) | payer MEDICARE ==
[~2023-06-30] VITALS: Ht 162.6 cm; Wt 72.6 kg
[2023-06-30] VITALS (7 sets, daily range): BP systolic 127–142; BP diastolic 64–78; TEMP 97.6–98.1; O2SAT 92–97
[~2023-06-30 06:50] MED LIST changes: +HEPARIN SOD (PORCINE) 5000UNITS/ML 1ML VIAL/SYRINGE SQ ONE; +ceFAZolin SOD 2 GM in IV 1 EA IV ONE
[2023-06-30] MEDS ORDERED: LR 1,000 ML IV SCH ×2 (07:00→12:10)
[2023-06-30] MEDS ORDERED: GENTAMICIN SULF 80MG/2ML VIAL As Ordered ONE (07:34)
[2023-06-30] MEDS ORDERED: fentaNYL 100 MCG/2 ML INJECTION As Ordered ONE (07:51)
[2023-06-30] MEDS ORDERED: ONDANSETRON 4MG 2ML VIAL As Ordered ONE (07:52)
[2023-06-30] MEDS ORDERED: ROCURONIUM BROMIDE 50MG/5ML VIAL As Ordered ONE (07:52)
[2023-06-30] MEDS ORDERED: MIDAZOLAM INJ 2MG/2ML VIAL As Ordered ONE (07:52)
[2023-06-30] MEDS ORDERED: LIDOCAINE 2% 100MG/5ML SDV (FOR ANES.) As Ordered ONE (07:52)
[2023-06-30] MEDS ORDERED: propofoL 200 MG/20 ML VIAL As Ordered ONE (07:52)
[2023-06-30] MEDS ORDERED: SUGAMMADEX SODIUM 500 MG/5 ML VIAL (BRIDION) As Ordered ONE (07:52)
[2023-06-30] MEDS ORDERED: ACETAMINOPHEN 1000MG 100ML IV BAG As Ordered ONE (07:53)
[2023-06-30] MEDS ORDERED: HYDROmorphone HCL 2MG/ML 1ML VIAL As Ordered ONE (09:34)
[2023-06-30] MEDS ORDERED: ONDANSETRON 4MG 2ML VIAL IV PRN ×2 (11:55→12:10)
[2023-06-30] MEDS ORDERED: GLUCOSE 4GM CHEW TABLET PO PRN ×2 (11:55→12:30)
[2023-06-30] MEDS ORDERED: traMADol 50 MG TAB PO PRN (11:55)
[2023-06-30] MEDS ORDERED: GLUCAGON INJ 1MG VIAL SC PRN ×2 (11:55→12:30)
[2023-06-30] MEDS ORDERED: DEXTROSE 50% 50ML SYRINGE IV PRN ×2 (11:55→12:30)
[2023-06-30] MEDS ORDERED: LEVALBUTEROL 1.25MG 0.5ML CONCENTRATE NEB INH PRN (11:55)
[2023-06-30] MEDS ORDERED: ACETAMINOPHEN TAB 650MG DOSE (2X325MG) PO PRN (11:55)
[2023-06-30] MEDS ORDERED: PERCOCET 5MG/325MG TAB PO PRN (11:55)
[2023-06-30] MEDS: INSULIN LISPRO (NovoLOG) PER UNIT SC SCH ×2 (12:00→17:02)
[2023-06-30] MEDS ORDERED: oxyCODONE 5MG TAB PO PRN (12:10)
[2023-06-30] MEDS ORDERED: HYDROMORPHONE HCL 0.5 MG/ 0.5 ML SYRINGE IV PRN (12:10)
[2023-06-30] MEDS: fentaNYL 100 MCG/2 ML INJECTION IV PRN ×4 (12:17→12:48)
[2023-06-30] MEDS ORDERED: MED REC IN PROGRESS XX SCH (14:40)
[2023-06-30] MEDS ORDERED: VIBE75TA PO (14:58)
[2023-06-30] MEDS ORDERED: ROSU20TA61 PO (14:58)
[2023-06-30] MEDS ORDERED: HOME MED LIST COMPLETE! XX SCH (15:00)
[2023-06-30] MEDS: LR 1,000 ML IV SCH (15:47)
[2023-06-30] MEDS: ROSUVASTATIN 10 MG TAB (CRESTOR) PO SCH (16:14)
[2023-06-30] MEDS: LOSARTAN 25 MG TAB PO SCH (16:15)
[2023-06-30] MEDS: PANTOPRAZOLE 40MG TAB (PROTONIX) PO SCH (16:15)
[2023-06-30] MEDS: METOPROLOL SUCC (TopROL XL) 50MG **XL** TAB PO SCH (16:16)
[2023-06-30] MEDS: ceFAZolin SOD 1 GM in D5W MINI-BAG PLUS 50 ML IV SCH (17:02)
[2023-06-30] MEDS: HEPARIN SOD (PORCINE) 5000UNITS/ML 1ML VIAL/SYRINGE SQ SCH (20:54)
[2023-06-30] MEDS ORDERED: INSULIN LISPRO (NovoLOG) PER UNIT SC SCH (21:00)
[2023-07-01] MEDS: LR 1,000 ML IV SCH (01:25)
[2023-07-01] MEDS: ceFAZolin SOD 1 GM in D5W MINI-BAG PLUS 50 ML IV SCH ×2 (01:25→08:54)
[2023-07-01 02:00] VITALS: BP 146/79; TEMP 97.6; O2SAT 93
[2023-07-01 06:10] VITALS: BP 118/64; TEMP 98.6; O2SAT 92
[2023-07-01] MEDS: INSULIN LISPRO (NovoLOG) PER UNIT SC SCH ×2 (08:52→11:51)
[2023-07-01] MEDS: HEPARIN SOD (PORCINE) 5000UNITS/ML 1ML VIAL/SYRINGE SQ SCH (08:54)
[2023-07-01] MEDS: PANTOPRAZOLE 40MG TAB (PROTONIX) PO SCH (08:55)
[2023-07-01] MEDS: ROSUVASTATIN 10 MG TAB (CRESTOR) PO SCH (08:55)
[2023-07-01 08:56] VITALS: BP 133/70
[2023-07-01] MEDS: LOSARTAN 25 MG TAB PO SCH (08:56)
[2023-07-01] MEDS: METOPROLOL SUCC (TopROL XL) 50MG **XL** TAB PO SCH (08:56)
[2023-07-01] MEDS ORDERED: TRAM50TA2 PO (09:41)
== END 2023-07-01 13:25 | disposition home or self-care (01) ==
LOC: M SDC 06:50 → M RR INP 06:51 → M MS5PR 14:15
PROVIDERS: ADMIT Plastic Surgery Surgery of the Hand; ATTEND Plastic Surgery Surgery of the Hand
DX: M54.07 Panniculitis affecting regions of neck and back, lumbosacral region (principal); L91.0 Hypertrophic scar; E11.9 Type 2 diabetes mellitus without complications; I10 Essential (primary) hypertension; F41.9 Anxiety disorder, unspecified; F32.A Depression, unspecified; E78.00 Pure hypercholesterolemia, unspecified; G47.00 Insomnia, unspecified; J45.909 Unspecified asthma, uncomplicated; Z79.4 Long term (current) use of insulin; Z79.01 Long term (current) use of anticoagulants; Z79.51 Long term (current) use of inhaled steroids; Z86.73 Personal history of transient ischemic attack (TIA), and cerebral infarction without residual deficits
CPT/HCPCS: 15830; 15847; 87635; 88300; 96365; 96366; 96372; C9290; G0378; J0131; J0665; J0690; J1170; J1580; J1815; J2250; J2405; J3010

== ENCOUNTER → 2024-02-09 | Outpatient (REF) | payer MEDICARE ==
[~2024-02-09] MED LIST changes: -HEPARIN SOD (PORCINE) 5000UNITS/ML 1ML VIAL/SYRINGE SQ ONE; +OXYC1TAB23 PO; -ROSU10TA6; -ROSU10TA6 PO; +ROSU10TA61; +ROSU10TA61 PO; +ROSU20TA61 PO; +TRAM50TA2 PO; +VIBE75TA PO; -ZOLP12.518; -ZOLP12.518 PO; +ZOLP12.535; +ZOLP12.535 PO; -ceFAZolin SOD 2 GM in IV 1 EA IV ONE
[2024-02-09 18:18] LABS: APPEARANCE, URINE HAZY (CLEAR); BACTERIA, URINE AUTO 2+ (NEGATIVE); BILIRUBIN, URINE AUTO NEGATIVE (NEGATIVE); BLOOD, URINE BLOOD NEGATIVE (NEGATIVE); COLOR, URINE YELLOW (YELLOW); GLUCOSE, URINE (UA) AUTO NEGATIVE (NEGATIVE); KETONE, URINE AUTO NEGATIVE (NEGATIVE); LEUKOCYTE ESTERASE, URINE AUTO NEGATIVE (NEGATIVE); MUCUS, URINE SMALL (NEGATIVE); NITRITE, URINE AUTO POSITIVE (NEGATIVE); PROTEIN, URINE AUTO NEGATIVE (NEGATIVE); RBC, URINE AUTO 1 /HPF (0-3); SPECIFIC GRAVITY URINE AUTO 1.012 (1.002-1.035); SQUAMOUS EPITHELIAL CELL UR AU 1 /HPF (0-6); UROBILINOGEN, URINE AUTO 0.2 mg/dL (0.0-2.0); WBC, URINE AUTO 11 /HPF (0-3)
== END ==
LOC: M SMT 17:03
PROVIDERS: ATTEND Physician Assistant
DX: R30.0 Dysuria (principal)

== ENCOUNTER → 2024-02-24 | Outpatient (REF) | payer MEDICARE ==
[2024-02-24 18:30] LABS: APPEARANCE, URINE HAZY (CLEAR); BACTERIA, URINE AUTO 1+ (NEGATIVE); BILIRUBIN, URINE AUTO NEGATIVE (NEGATIVE); BLOOD, URINE BLOOD NEGATIVE (NEGATIVE); COLOR, URINE YELLOW (YELLOW); GLUCOSE, URINE (UA) AUTO NEGATIVE (NEGATIVE); KETONE, URINE AUTO NEGATIVE (NEGATIVE); LEUKOCYTE ESTERASE, URINE AUTO NEGATIVE (NEGATIVE); NITRITE, URINE AUTO POSITIVE (NEGATIVE); PROTEIN, URINE AUTO NEGATIVE (NEGATIVE); RBC, URINE AUTO 0 /HPF (0-3); SPECIFIC GRAVITY URINE AUTO 1.012 (1.002-1.035); SQUAMOUS EPITHELIAL CELL UR AU 2 /HPF (0-6); WBC, URINE AUTO 10 /HPF (0-3)
== END ==
LOC: M SMT 17:13
PROVIDERS: ATTEND Physician Assistant
DX: N39.0 Urinary tract infection, site not specified (principal)

== ENCOUNTER → 2025-02-16 | Outpatient (CLI) | payer MEDICARE ==
[~2025-02-16] MED LIST changes: +AMIT10TA11 PO; -AMIT10TA7 PO; -LEVA0.6322; +LEVA0.6330; -ROSU20TA61 PO; +ROSU20TA86 PO
[2025-02-16 13:36] LABS: CALCIUM LEVEL 9.1 MG/DL (8.3-10.6); CARBON DIOXIDE LEVEL 28.0 MMOL/L (20-31); CHLORIDE LEVEL 105.0 MMOL/L (98-107); CREATININE FOR GFR 0.9 MG/DL (0.55-1.30); GLOMERULAR FILTRATION RATE 69.2 (>45); POTASSIUM SERUM 3.2 MMOL/L (3.5-5.1); SODIUM LEVEL 144.0 MMOL/L (136-145)
== END ==
LOC: M LAB 12:14
PROVIDERS: ATTEND Plastic Surgery Surgery of the Hand
DX: Z48.817 Encounter for surgical aftercare following surgery on the skin and subcutaneous tissue (principal)

== ENCOUNTER → 2025-02-21 | Outpatient (CLI) | payer MEDICARE ==
[~2025-02-21] MED LIST changes: +ISOVUE-370 76% 100 ML VIAL As Ordered ONE
== END ==
LOC: M RAD 06:36
PROVIDERS: ATTEND Physician Assistant
DX: L90.5 Scar conditions and fibrosis of skin (principal); Z48.817 Encounter for surgical aftercare following surgery on the skin and subcutaneous tissue; K44.9 Diaphragmatic hernia without obstruction or gangrene; K57.30 Diverticulosis of large intestine without perforation or abscess without bleeding; Z90.49 Acquired absence of other specified parts of digestive tract; K42.9 Umbilical hernia without obstruction or gangrene; R93.3 Abnormal findings on diagnostic imaging of other parts of digestive tract
CPT/HCPCS: 74177; Q9967